=== PATIENT | female | born 1990 | race Hispanic/Latino ===

== ENCOUNTER 2018-01-05 10:53 | Emergency (ER) | payer SELFPAY ==
[2018-01-05 11:24] VITALS: BP 115/75; PULSE 94; RESP 20; TEMP 36.9; O2SAT 98; BMI 42.5
[2018-01-05] MEDS: ONDANSETRON 4 MG/2 ML INJ IV ×2 (11:53→12:49)
[2018-01-05] MEDS: SODIUM CHLORIDE 0.9% 1,000 ML 150 ML IV (11:53)
[2018-01-05 11:57] LABS: Add Manual Diff / Slide Review NO; Basophils Percent Auto 0.2 % (0-2); Eosinophils Percent Auto 0.9 % (2-4); Hematocrit 43.2 % (36-46); Hemoglobin 15.1 g/dL (12.0-16.0); Lymphocytes Percent Auto 7.4 % (25-40); Mean Corpuscular HGB Conc 34.9 % (30-36); Mean Corpuscular Hemoglobin 30.4 PG (26-34); Mean Corpuscular Volume 87.3 fL (80-100); Monocytes Percent Auto 7.1 % (3-14); Neutrophils Absolute Auto 8100 /uL (3000-5900); Neutrophils Percent Auto 84.4 % (50-75); Platelet Count 184 X10^3/uL (150-400); Red Blood Cell Count 4.95 X10^6/uL (4.0-5.2); Red Cell Distribution Width 13.3 % (11.6-14.8); White Blood Cell Count 9.6 X10^3/uL (4.5-11.0)
[2018-01-05 12:03] LABS: INR 1.1 (0.9-1.3); Prothrombin Time 11.6 SECONDS (10.1-12.7)
--- NOTE | 2018-01-05 12:04 | ED.NAVMDI ---
HPI - Nausea/Vomiting/Diarrhea <TRUPTI Burnham - Last Filed: 01/05/18 22:15> General Chief complaint: Nausea/Vomiting/Diarrhea Stated complaint: THROWING UP,'DON'T FEEL GOOD' Time Seen by Provider: 01/05/18 12:04 Source: patient Mode of arrival: ambulatory Limitations: no limitations History of Present Illness HPI Narrative: 27-year-old female here for complaint of having nausea and vomiting that started earlier today. She states she has some abdominal pain as well. Last bowel movement was earlier today and she states was diarrhea. She denies any stressor relievers of the pain. She is concerned she might have UTI and she states that she has had some urine urgency starting yesterday. She denies any flank pains. No fevers no chills. She denies other family members or contacts having similar symptoms. No other concerns or complaints at this time Related Data Home Medications Medication Instructions Recorded Confirmed Probiotic 1 cap PO DAILY 01/05/18 01/05/18 Previous Rx's Medication Instructions Recorded ondansetron 4 mg PO TID PRN #9 tab 01/05/18 Allergies Allergy/AdvReac Type Severity Reaction Status Date / Time No Known Drug Allergies Allergy Verified 01/05/18 11:32 Review of Systems <TRUPTI Burnham - Last Filed: 01/05/18 22:15> Constitutional Denies chills, Denies fever(s), Denies lethargy and Denies weakness Eyes Denies change in vision, Denies eye discharge, Denies irritation and Denies loss of vision ENT Ears, Nose, Mouth, and Throat: Denies change in voice, Denies neck pain and Denies sore throat Cardiovascular Denies chest pain, Denies irregular heart rhythm, Denies lightheadedness, Denies palpitations, Denies dyspnea, Denies dyspnea on exertion and Denies orthopnea Respiratory Denies cough, Denies dyspnea, Denies dyspnea on exertion and Denies wheezing Gastrointestinal Gastrointestinal: Reports abdominal pain, Reports diarrhea and Reports vomiting Genitourinary Reports urinary urgency Musculoskeletal Denies neck pain Integumentary/Breasts Denies pruritus, Denies erythema, Denies rash and Denies wounds Neurologic Denies confusion, Denies loss of vision and Denies weakness Psychiatric Denies anxiety, Denies confusion, Denies depression, Denies homicidal ideation and Denies suicidal ideation Endocrine Denies palpitations Hematologic/Lymphatic Denies easy bruising Allergic/Immunologic Denies wheezing Exam <TRUPTI Burnham - Last Filed: 01/05/18 22:15> Initial Vital Signs Initial Vital Signs: Vital Signs Temperature 98.5 F 01/05/18 11:24 Pulse Rate 94 H 01/05/18 11:24 Respiratory Rate 20 01/05/18 11:24 Blood Pressure 115/75 01/05/18 11:24 Pulse Oximetry 98 01/05/18 11:24 Const General: cooperative and well developed Nutritional Appearance: well nourished Orientation: alert, awake, oriented x3 and not confused HENKS Mouth: oral mucosae normal and moist mucous membranes Eyes Conjunctivae: conjunctivae normal Sclera: sclerae normal Pupils: PERRL EOM: EOM intact bilaterally Resp Effort & Inspection: normal respiratory effort, able to speak in complete sentences, no respiratory distress and no use of accessory muscles Auscultation: clear to auscultation bilaterally, no rales, no rhonchi and no wheezes Cardio Rate: regular rate Rhythm: regular rhythm Heart Sounds: no click, no gallops, no murmurs and no rubs GI Inspection: non-distended Palpation: soft, no hepatosplenomegaly, No guarding, No pulsatile mass and tender (Tenderness on palpation to right lower quadrant and to left upper quadrant) Auscultation: normal bowel sounds General: No CVA tenderness Skin General: no rashes or lesions noted, No jaundice and No petechiae Neuro General: alert, oriented x3, gait normal and no focal motor deficits Speech: speech normal <Landon Centeno DO - Last Filed: 01/22/18 07:56> Initial Vital Signs Initial Vital Signs: Vital Signs Temperature 98.5 F 01/05/18 11:24 Pulse Rate 94 H 01/05/18 11:24 Respiratory Rate 20 01/05/18 11:24 Blood Pressure 115/75 01/05/18 11:24 Pulse Oximetry 98 01/05/18 11:24 Course <TRUPTI Burnham - Last Filed: 01/05/18 22:15> Orders Ordered: Discontinued Medications Sodium Chloride (Normal Saline 0.9%) 1,000 mls @ 150 mls/hr IV CONT RODNEY Last Infusion: 01/05/18 12:50 Dose: 0 mls/hr Admin: 01/05/18 11:53 Dose: 150 mls/hr Ondansetron HCl (Zofran) 4 mg IV Q4HR PRN PRN Reason: Nausea And Vomiting Last Admin: 01/05/18 11:53 Dose: 4 mg Ondansetron HCl (Zofran) 4 mg IV NOW ONE Stop: 01/05/18 12:46 Last Admin: 01/05/18 12:49 Dose: 4 mg Vital Signs - 8 hr 01/05/18 11:24 01/05/18 12:40 Temperature 98.5 F Pulse Rate 94 H 87 Respiratory Rate 20 18 Blood Pressure 115/75 Blood Pressure [Left Arm] 119/68 Pulse Oximetry 98 100 <Landon Centeno DO - Last Filed: 01/22/18 07:56> Orders Ordered: Discontinued Medications Sodium Chloride (Normal Saline 0.9%) 1,000 mls @ 150 mls/hr IV CONT RODNEY Last Infusion: 01/05/18 12:50 Dose: 0 mls/hr Admin: 01/05/18 11:53 Dose: 150 mls/hr Ondansetron HCl (Zofran) 4 mg IV Q4HR PRN PRN Reason: Nausea And Vomiting Last Admin: 01/05/18 11:53 Dose: 4 mg Ondansetron HCl (Zofran) 4 mg IV NOW ONE Stop: 01/05/18 12:46 Last Admin: 01/05/18 12:49 Dose: 4 mg Vital Signs - 8 hr 01/05/18 11:24 01/05/18 12:40 Temperature 98.5 F Pulse Rate 94 H 87 Respiratory Rate 20 18 Blood Pressure 115/75 Blood Pressure [Left Arm] 119/68 Pulse Oximetry 98 100 MDM - Nausea/Vomiting/Diarrhea <TRUPTI Burnham - Last Filed: 01/05/18 22:15> Lab Data Result diagrams: 01/05/18 11:40 01/05/18 11:40 Lab Results 01/05/18 01/05/18 01/05/18 Range/Units 11:40 11:40 11:40 WBC 9.6 (4.5-11.0) X10^3/uL RBC 4.95 (4.0-5.2) X10^6/uL Hgb 15.1 (12.0-16.0) g/dL Hct 43.2 (36-46) % MCV 87.3 (80-100) fL MCH 30.4 (26-34) PG MCHC 34.9 (30-36) % RDW 13.3 (11.6-14.8) % Plt Count 184 (150-400) X10^3/uL Neut % (Auto) 84.4 H (50-75) % Lymph % (Auto) 7.4 L (25-40) % [place] % (Auto) 7.1 (3-14) % Eos % (Auto) 0.9 L (2-4) % Baso % (Auto) 0.2 (0-2) % Neut # (Auto) 8100 H (7113-1709) /uL PT 11.6 (10.1-12.7) SECONDS INR 1.1 (0.9-1.3) APTT 31 (26.4-36.2) SECONDS Sodium 138 (137-145) mmol/L Potassium 3.9 (3.4-5.1) mmol/L Chloride 102 (98-107) mmol/L Carbon Dioxide 26 (22-32) mmol/L BUN 13 (7-17) mg/dL Creatinine 0.60 (0.52-1.04) mg/dL Estimated GFR > 60.0 (>60) mL/min BUN/Creatinine Ratio 21.7 (6-22) Glucose 110 H (70-100) mg/dL Calcium 9.0 (8.4-10.2) mg/dL Total Bilirubin 1.1 (0.2-1.3) mg/dL AST 21 (14-36) IU/L ALT 27 (9-52) IU/L Alkaline Phosphatase 57 (38-126) U/L Total Protein 7.4 (6.3-8.2) g/dL Albumin 4.4 (3.5-5.0) g/dL Globulin 3.0 (1.7-4.1) g/dL Albumin/Globulin Ratio 1.5 (1.0-2.8) Lipase 50 (23-300) U/L Imaging Data CT scan - abdomen: Radiologist's impression: Patient: Mara Charlton MR#: [id number] : 1990 Acct:[id number] Age/Sex: 27 / F Date of Service: 01/05/18 Loc: ED Accession Number: [id number] Procedure: CT abdomen pelvis w con Ordering Provider: Jet Edwards PROCEDURE: CT ABDOMEN PELVIS W CON INDICATIONS: Pain to right lower quadrant and left upper quadrant TECHNIQUE: After the administration of intravenous contrast, 5 mm thick sections acquired from the diaphragm to the symphysis. 5 mm coronal and sagittal reformats were acquired. For radiation dose reduction, the following was used: automated exposure control, adjustment of mA and/or kV according to patient size. COMPARISON: None. FINDINGS: Image quality: Excellent. ABDOMEN: Lung bases: Lung bases are clear. Heart size is normal. Solid organs: Liver is normal in size and enhancement. Gallbladder is within normal limits. Biliary system is non dilated. Pancreas enhances normally. Spleen is normal in size and enhancement. No adrenal nodules. Kidneys demonstrate normal size and enhancement, without hydronephrosis. Small right renal cyst. Peritoneum and bowel: Bowel loops demonstrate normal caliber. Mild circumferential wall thickening involving several tarsal loops of small bowel noted compatible with nonspecific enteritis. No free fluid or air. The appendix is normal. Nodes and vessels: No retroperitoneal or mesenteric adenopathy by size criteria. Aorta and inferior vena cava are normal in size. Miscellaneous: No ventral hernias. PELVIS: Genitourinary: Bladder wall thickness is normal. Miscellaneous: No inguinal hernias or adenopathy. Bones: No suspicious bony lesions. No vertebral body compression fractures. IMPRESSION: 1. Mild circumferential wall thickening involving proximal loops of small bowel most compatible with enteritis. 2. The appendix is normal. 3. No free fluid or air. 4. No dilated loops of bowel. Dictated by: Kellie Haque MD, PhD on 01/05/2018 at 13:17 Approved by: Kellie Haque MD, PhD on 01/05/2018 at 13:23 [facility] Narrative Medical decision making narrative: CBC and Chem panel were obtained were unremarkable. Lipase was normal. Urinalysis was negative for and for urinary tract infection. She was given fluids and Zofran in the emergency room and she felt better. Due to pain into the right lower quadrant a CT was obtained and shows some thickening of the small bowel loops suggestive of enteritis no other acute findings. Will treat as a viral illness. She is prescribed Zofran for nausea and vomiting. Plenty of fluids slowly advance diet as tolerated. Follow up with primary care provider in the next few days for re-evaluation. For any worsening symptoms return to the emergency room. <Landon Centeno DO - Last Filed: 01/22/18 07:56> Lab Data Lab Results 01/05/18 01/05/18 01/05/18 Range/Units 11:40 11:40 11:40 WBC 9.6 (4.5-11.0) X10^3/uL RBC 4.95 (4.0-5.2) X10^6/uL Hgb 15.1 (12.0-16.0) g/dL Hct 43.2 (36-46) % MCV 87.3 (80-100) fL MCH 30.4 (26-34) PG MCHC 34.9 (30-36) % RDW 13.3 (11.6-14.8) % Plt Count 184 (150-400) X10^3/uL Neut % (Auto) 84.4 H (50-75) % Lymph % (Auto) 7.4 L (25-40) % [place] % (Auto) 7.1 (3-14) % Eos % (Auto) 0.9 L (2-4) % Baso % (Auto) 0.2 (0-2) % Neut # (Auto) 8100 H (4348-2257) /uL PT 11.6 (10.1-12.7) SECONDS INR 1.1 (0.9-1.3) APTT 31 (26.4-36.2) SECONDS Sodium 138 (137-145) mmol/L Potassium 3.9 (3.4-5.1) mmol/L Chloride 102 (98-107) mmol/L Carbon Dioxide 26 (22-32) mmol/L BUN 13 (7-17) mg/dL Creatinine 0.60 (0.52-1.04) mg/dL Estimated GFR > 60.0 (>60) mL/min BUN/Creatinine Ratio 21.7 (6-22) Glucose 110 H (70-100) mg/dL Calcium 9.0 (8.4-10.2) mg/dL Total Bilirubin 1.1 (0.2-1.3) mg/dL AST 21 (14-36) IU/L ALT 27 (9-52) IU/L Alkaline Phosphatase 57 (38-126) U/L Total Protein 7.4 (6.3-8.2) g/dL Albumin 4.4 (3.5-5.0) g/dL Globulin 3.0 (1.7-4.1) g/dL Albumin/Globulin Ratio 1.5 (1.0-2.8) Lipase 50 (23-300) U/L Discharge Plan Departure Patient Disposition: Home, Self-Care Clinical Impression: Nausea & vomiting Discharge Date/Time: 01/05/18 13:49 Interventions: ED Discharge Assessment Last Done: 01/05/18 13:45 Instructions: DI for Viral Gastroenteritis -- Adult Activity Restrictions/Additional Instructions: Laboratory results were unremarkable today CT was unremarkable except for signs of enteritis. Signs and symptoms presents as a viral illness. Ondansetron is prescribed to help with nausea vomiting use as directed. Plenty of fluids. Slowly advance diet as tolerated. Follow up with primary care provider in the next few days for re-evaluation. For any worsening symptoms return to the emergency room. Prescriptions: New ondansetron 4 mg tablet,disintegrating 4 mg PO TID PRN (Reason: nausea and vomiting) Qty: 9 RF: 0 No Action Probiotic 1 cap PO DAILY RF: 0 Referrals: [facility] [Provider Group] <Landon Centeno DO - Last Filed: 01/22/18 07:56> Cosign ED Attending Beata Attestation: I was immediately available in the department for consultation. Documentation has been reviewed. I agree with assessment and plan.
[2018-01-05 12:06] LABS: PTT Partial Thromboplastin Tim 31 SECONDS (26.4-36.2)
[2018-01-05 12:08] LABS: Alanine Aminotransferase 27 IU/L (9-52); Albumin 4.4 g/dL (3.5-5.0); Albumin Globulin Ratio 1.5 (1.0-2.8); Alkaline Phosphatase 57 U/L (38-126); Aspartate Aminotransferase 21 IU/L (14-36); BUN Creatinine Ratio 21.7 (6-22); Bilirubin Total 1.1 mg/dL (0.2-1.3); Blood Urea Nitrogen 13 mg/dL (7-17); Carbon Dioxide 26 mmol/L (22-32); Chloride 102 mmol/L (98-107); Estimated Glomerular Filt Rate > 60.0 mL/min (>60); Glucose 110 mg/dL (70-100); HEMOLYSIS < 15 (0-50); Lipase 50 U/L (23-300); Potassium 3.9 mmol/L (3.4-5.1); Sodium 138 mmol/L (137-145); Total Protein 7.4 g/dL (6.3-8.2)
--- NOTE | 2018-01-05 12:17 | DI.CT.S_ITS ---
PROCEDURE: CT ABDOMEN PELVIS W CON INDICATIONS: Pain to right lower quadrant and left upper quadrant TECHNIQUE: After the administration of intravenous contrast, 5 mm thick sections acquired from the diaphragm to the symphysis. 5 mm coronal and sagittal reformats were acquired. For radiation dose reduction, the following was used: automated exposure control, adjustment of mA and/or kV according to patient size. COMPARISON: None. FINDINGS: Image quality: Excellent. ABDOMEN: Lung bases: Lung bases are clear. Heart size is normal. Solid organs: Liver is normal in size and enhancement. Gallbladder is within normal limits. Biliary system is non dilated. Pancreas enhances normally. Spleen is normal in size and enhancement. No adrenal nodules. Kidneys demonstrate normal size and enhancement, without hydronephrosis. Small right renal cyst. Peritoneum and bowel: Bowel loops demonstrate normal caliber. Mild circumferential wall thickening involving several tarsal loops of small bowel noted compatible with nonspecific enteritis. No free fluid or air. The appendix is normal. Nodes and vessels: No retroperitoneal or mesenteric adenopathy by size criteria. Aorta and inferior vena cava are normal in size. Miscellaneous: No ventral hernias. PELVIS: Genitourinary: Bladder wall thickness is normal. Miscellaneous: No inguinal hernias or adenopathy. Bones: No suspicious bony lesions. No vertebral body compression fractures. IMPRESSION: 1. Mild circumferential wall thickening involving proximal loops of small bowel most compatible with enteritis. 2. The appendix is normal. 3. No free fluid or air. 4. No dilated loops of bowel. Dictated by: Kellie Haque MD, PhD on 01/05/2018 at 13:17 Approved by: Kellie Haque MD, PhD on 01/05/2018 at 13:23
[2018-01-05 12:40] VITALS: BP 119/68; PULSE 87; RESP 18; O2SAT 100
[2018-01-05 13:45] VITALS: BP 121/81; PULSE 102; RESP 20; TEMP 37.2; O2SAT 99
== END 2018-01-05 13:49 | disposition home or self-care (01) ==
PROVIDERS: Emergency Provider Nurse Practitioner Family
DX: R11.2 Nausea with vomiting, unspecified (principal)
CPT/HCPCS: 36591; 74177; 80053; 81003; 81025; 83690; 85025; 85610; 85730; 96361; 96374; 99283; 99285; J2405; Q9967

== ENCOUNTER 2019-08-20 19:38 | Emergency (ER) | payer SELFPAY ==
[2019-08-20 19:43] VITALS: BP 112/78; PULSE 83; RESP 16; TEMP 36; O2SAT 99; BMI 38.4
--- NOTE | 2019-08-20 19:53 | ED.URI ---
HPI - URI/Sore Throat General Chief Complaint: Upper Respiratory Symptoms Stated Complaint: cough,body aches Time Seen by Provider: 08/20/19 19:42 Mode of arrival: Ambulatory Limitations: no limitations History of Present Illness HPI Narrative: 29-year-old female former smoker with noncontributory medical history presents with her significant other and a chief complaint of minor headache, runny nose, sore throat, dry hacking cough and subjective fever since yesterday. She denies any nausea, vomiting or diarrhea. She has no urinary symptoms such as dysuria, frequency, urgency or back pain. She has had no vaginal bleeding or discharge. She does live in [place] but denies any recent travel or exposure to persons known to be of interest for COVID-19. MD Complaint: fever, cough, sore throat, rhinorrhea and nasal congestion Onset (ago): day(s) Duration: constant Severity: moderate Relieving factors: nothing Exacerbating factors: nothing Description of mucous: clear Able to tolerate fluids by mouth: Yes Associated symptoms: fever, chills, headache, rhinorrhea, sore throat and cough Related Data Home Medications Medication Instructions Recorded Confirmed Probiotic 1 cap PO DAILY 01/05/18 01/05/18 Previous Rx's Medication Instructions Recorded ondansetron 4 mg PO TID PRN #9 tab 01/05/18 Allergies Allergy/AdvReac Type Severity Reaction Status Date / Time No Known Drug Allergies Allergy Verified 08/20/19 19:46 Review of Systems Constitutional Constitutional: Denies chills, Denies fatigue, Reports fever(s), Denies frequent falls, Reports headache(s), Denies lethargy and Denies weakness Eyes Eyes: Denies change in vision, Denies eye discharge, Denies irritation and Denies loss of vision ENT Ears, Nose, Mouth, and Throat: Denies change in voice, Denies dizziness, Reports headache(s), Reports nasal congestion, Denies neck pain, Reports sore throat and Denies throat swelling Cardiovascular Cardiovascular: Denies chest pain, Denies irregular heart rhythm, Denies lightheadedness, Denies palpitations, Denies dyspnea, Denies dyspnea on exertion and Denies orthopnea Respiratory Respiratory: Reports cough, Denies dyspnea, Denies dyspnea on exertion and Denies wheezing Gastrointestinal Gastrointestinal: Denies abdominal pain, Denies change in bowel habits, Denies diarrhea, Denies nausea and Denies vomiting Genitourinary Genitourinary: Denies hematuria, Denies flank pain, Denies urinary incontinence and Denies urinary urgency Musculoskeletal Musculoskeletal: Denies back pain, Denies muscle weakness, Denies neck pain, Denies numbness and Denies tingling Integumentary/Breasts Skin/Breast: Denies pruritus, Denies erythema, Denies rash and Denies wounds Neurologic Neurologic: Denies behavioral changes, Denies confusion, Denies dizziness, Denies frequent falls, Reports headache(s), Denies loss of vision, Denies numbness, Denies tingling and Denies weakness Psychiatric Psychiatric: Denies anxiety, Denies behavioral changes, Denies confusion, Denies depression, Denies homicidal ideation and Denies suicidal ideation Endocrine Endocrine: Denies fatigue, Denies flushing and Denies palpitations Hematologic/Lymphatic Hematologic/Lymphatic: Denies easy bruising Allergic/Immunologic Allergic/Immunologic: Denies urticaria, Denies throat swelling and Denies wheezing Patient History Social History Smoking Status: Former smoker Smoking Status: Former smoker alcohol intake frequency: 0-2 drinks per day Substance Use Type: marijuana Exam Narrative Exam Narrative: GENERAL: [29] year old patient appears stated age. Well-nourished, well-developed patient, in mild distress. HEAD: Atraumatic. Normocephalic. EYES: Pupils equal round and reactive. Extraocular motions intact. No scleral icterus. No injection or drainage. ENT: Clear bilateral nare drainage. Throat without erythema, tonsillar hypertrophy or exudate though there is clear postnasal drip. Airway patent. NECK: Trachea midline. Non tender CARDIOVASCULAR: Regular rate and rhythm without murmurs, gallops, or rubs. RESPIRATORY: Clear to auscultation. Breath sounds equal bilaterally. No wheezes, rales, or rhonchi. GASTROINTESTINAL: Abdomen soft, non-tender, nondistended. EXTREMITIES: No edema or joint tenderness. BACK: Nontender without deformity or crepitance. No flank tenderness. NEURO: AOx3. SKIN: No rash or erythema of visible areas Initial Vital Signs Initial Vital Signs: Vital Signs Temperature 96.8 F L 08/20/19 19:43 Pulse Rate 83 08/20/19 19:43 Respiratory Rate 16 08/20/19 19:43 Blood Pressure 112/78 08/20/19 19:43 Pulse Oximetry 99 08/20/19 19:43 Course Orders Ordered: ED Orders 08/20/19 19:53 XR chest 2V Stat 08/20/19 20:28 Influenza A & B (PCR) Stat Discontinued Medications Ketorolac Tromethamine (Toradol) 60 mg IM NOW ONE Stop: 08/20/19 19:54 Last Admin: 08/20/19 20:14 Dose: 60 mg Documented by: TOMMIE Vital Signs Vital signs: Vital Signs - 8 hr 08/20/19 19:43 Temperature 96.8 F L Pulse Rate 83 Respiratory Rate 16 Blood Pressure 112/78 Pulse Oximetry 99 MDM - URI/Sore Throat Lab Data Labs: Lab Results 08/20/19 Range/Units 20:28 Influenza A (RT-PCR) Flu a negative (NEGATIVE) Influenza B (RT-PCR) Flu b negative (NEGATIVE) Imaging Data Chest x-ray: Radiologist's Impression: [address] [address] XRay Report Signed Patient: Mara Charlton DMR#: [id number] : 1990Acct:[id number] Age/Sex: 29 / FDate of Service: 08/20/19 Loc: ED Accession Number: [id number] Procedure: XR chest 2V Ordering Provider: Landon Centeno D.O. PROCEDURE: XR CHEST 2V INDICATIONS: COUGH, FEVER, CHILLS TECHNIQUE: 2 views of the chest were acquired. COMPARISON: None. FINDINGS: Surgical changes and devices: None. Lungs and pleura: Lungs are clear. No pleural effusions or pneumothorax. Mediastinum: Mediastinal contours are normal. Heart size is normal. Bones and chest wall: No suspicious bony abnormalities. Soft tissues appear unremarkable. IMPRESSION: No acute process. Dictated by: Zachary Zapien M.D. on 08/20/2019 at 20:06 Approved by: Zachary Zapien M.D. on 08/20/2019 at 20:06 Discharge Plan Departure Patient Disposition: Home Clinical Impression: Upper respiratory virus Discharge Date/Time: 08/20/19 21:23 Instructions: DI for Viral Upper Respiratory Infection -- Adult Activity Restrictions/Additional Instructions: *You have been diagnosed with [acute viral upper respiratory infection. Your flu test was negative and her chest x-ray was clear, as interpreted by myself and radiology] *What to do: *Take medications as directed including [id number] cough and cold medications *Follow up with your primary care provider in 2-3 days, call for an appointment. Let them know you were seen in the Emergency Department and that we ask that you be seen in follow up *Return to ER if you should have any new, worsening or concerning symptoms Prescriptions: No Action Probiotic 1 cap PO DAILY RF: 0 ondansetron 4 mg tablet,disintegrating 4 mg PO TID PRN (Reason: nausea and vomiting) Qty: 9 RF: 0
[2019-08-20] MEDS: KETOROLAC 60 MG/2 ML VIAL IM (20:14)
[2019-08-20 21:03] LABS: Influenza A - CEPHEID Flu A NEGATIVE (NEGATIVE); Influenza B - CEPHEID Flu B NEGATIVE (NEGATIVE)
== END 2019-08-20 21:23 | disposition home or self-care (01) ==
PROVIDERS: Emergency Provider Emergency Medicine
DX: J06.9 Acute upper respiratory infection, unspecified (principal)
CPT/HCPCS: 71046; 87502; 96372; 99283; J1885

== ENCOUNTER 2020-11-26 15:52 | Emergency (ER) | payer SELFPAY ==
[2020-11-26] VITALS (9 sets, daily range): BP systolic 100–136; BP diastolic 65–89; PULSE 70–95; RESP 18–25; TEMP 36.6–36.8; O2SAT 96–100; BMI 49.4
[2020-11-26 17:40] LABS: Alanine Aminotransferase 20 IU/L (<35); Albumin 4.1 g/dL (3.5-5.0); Albumin Globulin Ratio 1.2 (1.0-2.8); Alkaline Phosphatase 90 U/L (38-126); Aspartate Aminotransferase 25 IU/L (14-36); BUN Creatinine Ratio 17.7 (6-22); Bilirubin Total 0.4 mg/dL (0.2-1.3); Blood Urea Nitrogen 11 mg/dL (7-17); Calcium 9.4 mg/dL (8.4-10.2); Carbon Dioxide 26 mmol/L (22-32); Chloride 106 mmol/L (98-107); Estimated Glomerular Filt Rate > 60.0 mL/min (>60); Globulin 3.3 g/dL (1.7-4.1); Glucose 102 mg/dL (70-100); HEMOLYSIS < 15 (0-50); Lipase 73 U/L (23-300); Potassium 3.8 mmol/L (3.4-5.1); Sodium 140 mmol/L (137-145); Total Protein 7.4 g/dL (6.3-8.2)
[2020-11-26 18:01] LABS: Add Manual Diff / Slide Review NO; Basophils Absolute Auto 100 /uL (0-100); Basophils Percent Auto 0.7 % (0-2); Eosinophils Absolute Auto 100 /uL (0-450); Eosinophils Percent Auto 0.8 % (2-4); Hematocrit 34.7 % (36-46); Hemoglobin 11.3 g/dL (12.0-16.0); Lymphocytes Absolute Auto 3300 /uL (1100-4500); Lymphocytes Percent Auto 37.4 % (25-40); Mean Corpuscular HGB Conc 32.6 % (30-36); Mean Corpuscular Hemoglobin 24.1 PG (26-34); Mean Corpuscular Volume 73.8 fL (80-100); Monocytes Absolute Auto 700 /uL (0-900); Monocytes Percent Auto 8.2 % (3-14); Neutrophils Absolute Auto 4600 /uL (1500-7000); Neutrophils Percent Auto 52.9 % (50-75); Platelet Count 266 X10^3/uL (150-400); Red Cell Distribution Width 17.1 % (11.6-14.8); White Blood Cell Count 8.8 X10^3/uL (4.5-11.0)
--- NOTE | 2020-11-26 18:50 | ED.ABDPAIN ---
HPI - Abdominal Pain General Chief Complaint: Abdominal Pain Stated Complaint: Severe stomach pain Time Seen by Provider: 11/26/20 18:50 Source: patient Mode of arrival: Ambulatory Limitations: no limitations Related Data Home Medications Medication Instructions Recorded Confirmed Probiotic 1 cap PO DAILY 01/05/18 01/05/18 Previous Rx's Medication Instructions Recorded ondansetron 4 mg PO TID PRN #9 tab 01/05/18 Allergies Allergy/AdvReac Type Severity Reaction Status Date / Time No Known Drug Allergies Allergy Verified 08/20/19 19:46 Patient History Social History Smoking Status: Former smoker Smoking Status: Former smoker alcohol intake frequency: 0-2 drinks per day Substance Use Type: does not use Exam Initial Vital Signs Initial Vital Signs: Vital Signs Temperature 98.2 F 11/26/20 15:56 Pulse Rate 95 H 11/26/20 15:56 Respiratory Rate 18 11/26/20 15:56 Blood Pressure 136/89 11/26/20 15:56 Pulse Oximetry 97 11/26/20 15:56 Course Orders Ordered: ED Orders 11/26/20 16:01 EKG-12 Lead Stat 11/26/20 17:08 Complete Blood Count AUTO DIFF Stat Comprehensive Metabolic Panel Stat Lipase Stat Vital Signs Vital signs: Vital Signs - 8 hr 11/26/20 15:56 Temperature 98.2 F Pulse Rate 95 H Respiratory Rate 18 Blood Pressure 136/89 Pulse Oximetry 97 MDM - Abdominal Pain Lab Data Result diagrams: 11/26/20 17:08 11/26/20 17:08 Labs: Lab Results 11/26/20 11/26/20 Range/Units 17:08 17:08 WBC 8.8 (4.5-11.0) X10^3/uL RBC 4.70 (4.0-5.2) X10^6/uL Hgb 11.3 L (12.0-16.0) g/dL Hct 34.7 L (36-46) % MCV 73.8 L (80-100) fL MCH 24.1 L (26-34) PG MCHC 32.6 (30-36) % RDW 17.1 H (11.6-14.8) % Plt Count 266 (150-400) X10^3/uL Neut % (Auto) 52.9 (50-75) % Lymph % (Auto) 37.4 (25-40) % [place] % (Auto) 8.2 (3-14) % Eos % (Auto) 0.8 L (2-4) % Baso % (Auto) 0.7 (0-2) % Neut # (Auto) 4600 (8603-5313) /uL Lymph # (Auto) 3300 (9824-0127) /uL [place] # (Auto) 700 (0-900) /uL Eos # (Auto) 100 (0-450) /uL Baso # (Auto) 100 (0-100) /uL Sodium 140 (137-145) mmol/L Potassium 3.8 (3.4-5.1) mmol/L Chloride 106 (98-107) mmol/L Carbon Dioxide 26 (22-32) mmol/L BUN 11 (7-17) mg/dL Creatinine 0.62 (0.52-1.04) mg/dL Estimated GFR > 60.0 (>60) mL/min BUN/Creatinine Ratio 17.7 (6-22) Glucose 102 H (70-100) mg/dL Calcium 9.4 (8.4-10.2) mg/dL Total Bilirubin 0.4 (0.2-1.3) mg/dL AST 25 (14-36) IU/L ALT 20 (<35) IU/L Alkaline Phosphatase 90 (38-126) U/L Total Protein 7.4 (6.3-8.2) g/dL Albumin 4.1 (3.5-5.0) g/dL Globulin 3.3 (1.7-4.1) g/dL Albumin/Globulin Ratio 1.2 (1.0-2.8) Lipase 73 (23-300) U/L Point of care testing: Point of Care Testing Test Results Negative Urine Dip Bedside Urine Glucose Negative Bedside Urine Bilirubin - Negative Bedside Urine Ketone - Negative Urine Specific [place] 1.025 Bedside Urine Occult Blood - Negative Bedside Urine pH 6.0 Bedside Urine Protein - Negative Bedside Urine Urobilinogen - Negative Bedside Urine Nitrite - Negative Bedside Urine Leukocytes - Negative Esterase Discharge Plan Departure Prescriptions: No Action Probiotic 1 cap PO DAILY RF: 0 ondansetron 4 mg tablet,disintegrating 4 mg PO TID PRN (Reason: nausea and vomiting) Qty: 9 RF: 0
--- NOTE | 2020-11-26 18:53 | ED.ABDPAIN ---
HPI - Abdominal Pain General Chief Complaint: Abdominal Pain Stated Complaint: Severe stomach pain Time Seen by Provider: 11/26/20 18:50 Source: patient Mode of arrival: Ambulatory Limitations: no limitations History of Present Illness HPI narrative: The patient presents with lower abdominal pain, onset of symptoms yesterday. She describes bandlike discomfort to her lower abdomen. She has no associated nausea vomiting. She has pain in the left mid back. She has pain with ambulation. She continues to eat and drink. She has no fever. She denies dysuria. Menstrual cycles are irregular. A recent home test is negative. Apparently her mother has a history of polycystic ovarian disease. The patient has a history of irregular menses, but no diagnosis of ovarian disease. She has no history of prior abdomen or pelvis surgeries. She is on no regular prescribed medications. Related Data Home Medications Medication Instructions Recorded Confirmed Probiotic 1 cap PO DAILY 01/05/18 01/05/18 Previous Rx's Medication Instructions Recorded ondansetron 4 mg PO TID PRN #9 tab 01/05/18 Allergies Allergy/AdvReac Type Severity Reaction Status Date / Time No Known Drug Allergies Allergy Verified 08/20/19 19:46 Review of Systems Constitutional Constitutional: Denies fever(s) and Denies headache(s) ENT Ears, Nose, Mouth, and Throat: Denies vertigo, Denies dizziness, Denies headache(s), Denies sinus pressure and Denies sore throat Cardiovascular Cardiovascular: Denies chest pain, Denies rapid heart rate and Denies dyspnea Respiratory Respiratory: Denies chest congestion, Denies cough and Denies dyspnea Gastrointestinal Gastrointestinal: Reports as per HPI Genitourinary Comments: No dysuria. Irregular menstrual cycles. Musculoskeletal Musculoskeletal: Reports as per HPI Integumentary/Breasts Skin/Breast: Reports alopecia, Denies pruritus and Denies rash Neurologic Neurologic: Denies confusion, Denies vertigo, Denies dizziness and Denies headache(s) Psychiatric Psychiatric: Denies confusion Comments: Feels stressed. Patient History Medical History (Updated 11/26/20 @ 22:02 by Db Leonard MD) Irregular menses Mixed anxiety depressive disorder (02/19/16) Surgical History (Updated 11/26/20 @ 21:54 by Db Leonard MD) No significant past surgical history Social History Smoking Status: Former smoker Smoking Status: Former smoker alcohol intake frequency: 0-2 drinks per day Substance Use Type: does not use Exam Initial Vital Signs Initial Vital Signs: Vital Signs Temperature 98.2 F 11/26/20 15:56 Pulse Rate 95 H 11/26/20 15:56 Respiratory Rate 18 11/26/20 15:56 Blood Pressure 136/89 11/26/20 15:56 Pulse Oximetry 97 11/26/20 15:56 Const General: cooperative and well developed Nutritional Appearance: well nourished [facility] [place] Head: normal to inspection, normocephalic and atraumatic Mouth: oral mucosae normal Eyes Conjunctivae: conjunctivae normal Sclera: sclerae normal Cornea: corneas normal Pupils: PERRL EOM: EOM intact bilaterally Neck Neck: supple and No lymphadenopathy Resp Effort & Inspection: normal respiratory effort and able to speak in complete sentences Auscultation: clear to auscultation bilaterally Cardio Rate: regular rate Rhythm: regular rhythm Heart Sounds: S1 normal, S2 normal, no click, no gallops, no murmurs and no rubs Pulses: normal peripheral pulses GI Other: obese. No palpable hepatosplenomegaly. Tenderness in the RLQ and LLQ without distention, guarding or rebound. Normal bowel sounds. Back/Spine/Pelvis Back: No CVA tenderness Skin Lesions: no lesions Rashes: no rashes Neuro General: patient alert, patient oriented x3, gait normal and no focal motor deficits Speech: speech normal Extrem Other: No lower extremity edema or calf tenderness. Psych Appearance: grossly normal and well kempt Mental Status: mental status grossly normal Course Course Course Narrative: Labs are reassuring. Pelvic ultrasound shows no ovarian disease. Abdomen/ pelvis CT is normal, no evidence of appendicitis. She has had minimal relief with Toradol. She has when he was stress is part of her issue. It may be. Orders Ordered: ED Orders 11/26/20 16:01 EKG-12 Lead Stat 11/26/20 17:08 Complete Blood Count AUTO DIFF Stat Comprehensive Metabolic Panel Stat Lipase Stat 11/26/20 19:11 US pelvic complete Stat 11/26/20 20:44 CT abdomen pelvis w con Stat Sodium Chloride (Normal Saline 0.9%) 1,000 mls @ 150 mls/hr IV CONT RODNEY Last Admin: 11/26/20 20:55 Dose: 150 mls/hr Documented by: LEONA Discontinued Medications Ketorolac Tromethamine (Ketorolac 30 Mg/Ml Vial) 15 mg IV NOW ONE Stop: 11/26/20 19:12 Last Admin: 11/26/20 19:16 Dose: 15 mg Documented by: WEN Vital Signs Vital signs: Vital Signs - 8 hr 11/26/20 15:56 11/26/20 18:31 11/26/20 19:00 Temperature 98.2 F Pulse Rate 95 H 88 87 Respiratory Rate 18 20 24 Blood Pressure 136/89 121/73 130/81 Pulse Oximetry 97 99 99 11/26/20 19:30 Temperature Pulse Rate 84 Respiratory Rate 25 H Blood Pressure 118/74 Pulse Oximetry 99 MDM - Abdominal Pain Lab Data Result diagrams: 11/26/20 17:08 11/26/20 17:08 Labs: Lab Results 11/26/20 11/26/20 Range/Units 17:08 17:08 WBC 8.8 (4.5-11.0) X10^3/uL RBC 4.70 (4.0-5.2) X10^6/uL Hgb 11.3 L (12.0-16.0) g/dL Hct 34.7 L (36-46) % MCV 73.8 L (80-100) fL MCH 24.1 L (26-34) PG MCHC 32.6 (30-36) % RDW 17.1 H (11.6-14.8) % Plt Count 266 (150-400) X10^3/uL Neut % (Auto) 52.9 (50-75) % Lymph % (Auto) 37.4 (25-40) % Williams % (Auto) 8.2 (3-14) % Eos % (Auto) 0.8 L (2-4) % Baso % (Auto) 0.7 (0-2) % Neut # (Auto) 4600 (3578-3330) /uL Lymph # (Auto) 3300 (1333-9867) /uL Williams # (Auto) 700 (0-900) /uL Eos # (Auto) 100 (0-450) /uL Baso # (Auto) 100 (0-100) /uL Sodium 140 (137-145) mmol/L Potassium 3.8 (3.4-5.1) mmol/L Chloride 106 (98-107) mmol/L Carbon Dioxide 26 (22-32) mmol/L BUN 11 (7-17) mg/dL Creatinine 0.62 (0.52-1.04) mg/dL Estimated GFR > 60.0 (>60) mL/min BUN/Creatinine Ratio 17.7 (6-22) Glucose 102 H (70-100) mg/dL Calcium 9.4 (8.4-10.2) mg/dL Total Bilirubin 0.4 (0.2-1.3) mg/dL AST 25 (14-36) IU/L ALT 20 (<35) IU/L Alkaline Phosphatase 90 (38-126) U/L Total Protein 7.4 (6.3-8.2) g/dL Albumin 4.1 (3.5-5.0) g/dL Globulin 3.3 (1.7-4.1) g/dL Albumin/Globulin Ratio 1.2 (1.0-2.8) Lipase 73 (23-300) U/L Point of care testing: Point of Care Testing Test Results Negative Urine Dip Bedside Urine Glucose Negative Bedside Urine Bilirubin - Negative Bedside Urine Ketone - Negative Urine Specific [place] 1.025 Bedside Urine Occult Blood - Negative Bedside Urine pH 6.0 Bedside Urine Protein - Negative Bedside Urine Urobilinogen - Negative Bedside Urine Nitrite - Negative Bedside Urine Leukocytes - Negative Esterase Imaging Data Pelvis ultrasound:: Radiologist's Impression: 25 Db Leonard MD Find Patient Imaging - Mara Charlton 30 F 1990 ACTIVITY DATE EXAM STATUS AUTHOR 11/26/20 19:[address] [id number] ReportSigned Patient: Mara Charlton DMR#: [id number]: 1990Acct:[id number]/Sex: 30 / FDate of Service: 11/26/20Loc: EDAccession Number: [id number] Procedure: US pelvic complete Ordering Provider: Db Leonard MD PROCEDURE: US PELVIC COMPLETE INDICATIONS: PAIN TECHNIQUE: Real-time scanning was performed of the pelvic organs, with image documentation. Additional endovaginal scanning was necessary due to incomplete visualization of the adnexal and endometrial structures by transabdominal scanning. COMPARISON: None. FINDINGS: Uterus: Uterus is normal in size at 4.2 x 6.0 x 8.1 cm. The endometrium measures 13 mm in combined thickness. Ovaries: The right ovary measures 2.2 x 2.3 x 3.0 centimeters. The left ovary measures 1.3 x 1.6 x 2.1 centimeters. No ovarian or adnexal mass. Other: No pathologic free abdominal or pelvic fluid. Appendix not visualized. IMPRESSION: Normal study. Appendix not visualized; appendicitis cannot be excluded. Dictated by: Gael Mckoy M.D. on 11/26/2020 at 20:07 Approved by: Gael Mckoy M.D. on 11/26/2020 at 20:08 CT scan - abdomen/pelvis: Radiologist's Impression: No evidence of appendicitis. No acute findings. Discharge Plan Departure Patient Disposition: Home Clinical Impression: Abdominal pain, right lower quadrant Instructions: DI for Abdominal Pain-Adult Activity Restrictions/Additional Instructions: Tylenol 2 tabs every 4 hours as needed for pain. Be sure you are drinking plenty of water. [place] diet as we discussed. Follow-up with your doctor later this week if symptoms persist. Return the ER if symptoms are obviously worse. Prescriptions: No Action Probiotic 1 cap PO DAILY RF: 0 ondansetron 4 mg tablet,disintegrating 4 mg PO TID PRN (Reason: nausea and vomiting) Qty: 9 RF: 0 Stand Alone Forms: Work Release Note
--- NOTE | 2020-11-26 19:11 | DI.US.S_ITS ---
PROCEDURE: US PELVIC COMPLETE INDICATIONS: PAIN TECHNIQUE: Real-time scanning was performed of the pelvic organs, with image documentation. Additional endovaginal scanning was necessary due to incomplete visualization of the adnexal and endometrial structures by transabdominal scanning. COMPARISON: None. FINDINGS: Uterus: Uterus is normal in size at 4.2 x 6.0 x 8.1 cm. The endometrium measures 13 mm in combined thickness. Ovaries: The right ovary measures 2.2 x 2.3 x 3.0 centimeters. The left ovary measures 1.3 x 1.6 x 2.1 centimeters. No ovarian or adnexal mass. Other: No pathologic free abdominal or pelvic fluid. Appendix not visualized. IMPRESSION: Normal study. Appendix not visualized; appendicitis cannot be excluded. Dictated by: Gael Mckoy M.D. on 11/26/2020 at 20:07 Approved by: Gael Mckoy M.D. on 11/26/2020 at 20:08
[2020-11-26] MEDS: KETOROLAC 30 MG/ML VIAL 15 MG IV (19:16)
--- NOTE | 2020-11-26 20:44 | DI.CT.S_ITS ---
PROCEDURE: CT ABDOMEN PELVIS W CON INDICATIONS: RLQ tenderness TECHNIQUE: After the administration of intravenous contrast, axial sections acquired from the lung bases to the pubic symphysis. Coronal and sagittal reformats were performed. For radiation dose reduction, the following was used: automated exposure control, adjustment of mA and/or kV according to patient size. COMPARISON: [facility], , PELVIC COMPLETE, 11/26/2020, 19:41. FINDINGS: Image quality: Excellent. Lung bases: Unremarkable. Heart: No significant findings. ABDOMEN: Liver: Unremarkable. Gallbladder: Normal. Biliary ducts: Unremarkable. Pancreas: No peripancreatic inflammatory changes or pancreatic ductal dilatation. Spleen: Unremarkable. Adrenal Glands: Unremarkable. Kidneys and Ureters: Unremarkable. Stomach and Bowel: Stomach, small bowel loops, and colon are unremarkable. Normal nondilated appendix containing air with no adjacent inflammatory change. No free fluid in the right lower quadrant or right lower quadrant lymphadenopathy. Peritoneum: No abnormal intraperitoneal fluid. No free air. Ventral Wall: No hernias. Abdominal Nodes: No retroperitoneal or mesenteric adenopathy by size criteria. Vessels: Aorta and inferior vena cava are normal in size. PELVIS: Pelvic Organs: Unremarkable. Bladder: Unremarkable. Pelvic Nodes: No enlarged lymph nodes. Miscellaneous: No hernias are seen. Bones: Unremarkable. IMPRESSION: No findings of appendicitis or other acute process. Dictated by: Gael Mckoy M.D. on 11/26/2020 at 21:12 Approved by: Gael Mckoy M.D. on 11/26/2020 at 21:15
[2020-11-26] MEDS: SODIUM CHLORIDE 0.9% 1,000 ML 150 ML IV (20:55)
== END 2020-11-26 22:24 | disposition home or self-care (01) ==
PROVIDERS: Emergency Medicine; Emergency Provider Emergency Medicine
DX: R10.31 Right lower quadrant pain (principal); M54.6 Pain in thoracic spine
CPT/HCPCS: 36415; 74177; 76830; 76856; 80053; 81003; 81025; 83690; 85025; 93005; 93010; 96361; 96374; 99284; J1885; Q9967

== ENCOUNTER 2021-02-19 11:17 | Emergency (ER) | payer BC, SELFPAY ==
[2021-02-19 11:24] VITALS: PULSE 104; O2SAT 99
[2021-02-19 11:25] VITALS: BP 124/82; PULSE 108; RESP 16; TEMP 36.8; O2SAT 97; BMI 50.3
[2021-02-19 11:30] VITALS: PULSE 108; O2SAT 99
[2021-02-19 12:00] VITALS: PULSE 98; O2SAT 98
--- NOTE | 2021-02-19 12:10 | ED_ITS ---
HPI - General Chief complaint: OB/Uterine Contractions Stated complaint: and bleeding/cramping 14.6weeks along Time Seen by Provider: 02/19/21 12:10 History of Present Illness HPI Narrative: 31-year-old at 15 weeks gestational age with a history of gestational diabetes and depression. Her 1st baby is only 7-month-old and was delivered via . She currently sees Dr. Gonzalez at [facility] for her primary care OB. She has had cramping throughout her entire and had attributed that to becoming so soon after her 1st delivery. Yesterday she noticed some minor brownish discharge and today after voiding noted some pink tinged discharge with wiping. She has not had any gush of fluid and not actively bleeding. She has not had any sexual intercourse for at least 2 weeks. She states that the cramping is at its baseline. She co ntacted her OB GYNs office in a asked her to come to the ER for further evaluation. Related Data Home Medications Medication Instructions Recorded Confirmed Probiotic 1 cap PO DAILY 01/05/18 01/05/18 Previous Rx's Medication Instructions Recorded ondansetron 4 mg disintegrating 4 mg PO TID PRN #9 tab 01/05/18 tablet Allergies Allergy/AdvReac Type Severity Reaction Status Date / Time No Known Drug Allergies Allergy Verified 08/20/19 19:46 Review of Systems Review of Systems Narrative: Pertinent positive and negative findings as per HPI Remainder of review of systems is otherwise unremarkable for Constitutional: Fevers, chills, weakness ENT: No sore throat, neck pain, ear pain CV: Chest pain, palpitations, Respiratory: Cough, wheeze, dyspnea GI: Nausea, vomiting, diarrhea, : Dysuria, hematuria, vaginal discharge or itching Exam Narrative Exam Narrative: General: Alert appropriate in no acute distress Respiratory: Able to speak in full sentences, no obvious respiratory distress Skin: No obvious rashes, warm and dry Neurologic: Grossly intact no obvious asymmetries or abnormalities Psych: appropriate insight and affect, cooperative Abdomen: Gravid, nontender no suprapubic tenderness External genitalia: No vaginal discharge no bleeding from the vaginal introitus Bedside ultrasound 15 week intrauterine fetus with heart rate at 140 and active movement appreciated Anterior low-lying placenta with no subchorionic hemorrhage Initial Vital Signs Initial Vital Signs: Vital Signs Pulse Rate 104 H 02/19/21 11:24 Pulse Oximetry 99 02/19/21 11:24 Course Orders Ordered: ED Orders 02/19/21 12:18 Complete Blood Count AUTO DIFF Stat Comprehensive Metabolic Panel Stat HCG Quantitative /Beta subunit Stat 02/19/21 12:19 Type and Screen Stat 02/19/21 12:31 Urinalysis and Microscopic Stat Vital Signs Vital signs: Vital Signs - 8 hr 02/19/21 11:24 02/19/21 11:25 02/19/21 11:30 Temperature 98.3 F Pulse Rate 104 H 108 H 108 H Respiratory Rate 16 Blood Pressure 124/82 Pulse Oximetry 99 97 99 02/19/21 12:00 02/19/21 13:09 Temperature Pulse Rate 98 H 68 Respiratory Rate 16 Blood Pressure 118/62 Pulse Oximetry 98 99 MDM - OB/Uterine Contractions Lab Data Labs: Lab Results 02/19/21 Range/Units 12:31 Urine Color Yellow Urine Appearance Clear Urine pH 6.0 (4.5-8.0) Ur Specific [place] 1.015 (1.000-1.035) Urine Protein Negative (Negative) Urine Glucose (UA) Negative (Negative) g/dL Urine Ketones 1+ H (NEGATIVE) Urine Occult Blood Trace-intact (Negative) Urine Nitrate Negative (Negative) Urine Bilirubin Negative (NEGATIVE) Urine Urobilinogen 0.2 (0.2) E.U./dL Ur Leukocyte Esterase Negative (NEGATIVE) Urine RBC 1-5/hpf (0-5/HPF) Urine WBC None seen (0-5/HPF) Ur Squamous Epith Cells 0-1 /hpf (0-5/HPF) Ur Transition Epith Cell 1-5/hpf (0-5/HPF) Urine Bacteria None seen (None) Ur Culture Indicated? Cult not indicated MDM Narrative Medical decision making narrative: 31-year-old at 15 weeks with some minor spotting appreciated earlier today. Viable intrauterine fetus with no evidence of active bleeding or subchorionic hemorrhage. She does have an anterior low- lying placenta that is not a placenta previa. There is no evidence of urinary tract infection. She is safe for home discharge and will follow-up with her OBGYN. Discharge Plan Departure Patient Disposition: Home Clinical Impression: Vaginal spotting Qualifiers: Weeks of gestation: 15 weeks Qualified Code(s): Z3A.15 - 15 weeks gestation of Instructions: DI for Vaginal Bleeding During Activity Restrictions/Additional Instructions: Thank you for coming in today Your baby looks perfect. The baby is moving around with heart rate in the 140s I did not see any signs of active bleeding. Your placenta is in the front of your uterus and comes down very close to your cervix. There is no bleeding under the placenta in the placenta does not cover your cervix. You do not have a bladder infection today. At this time, I am reassured. Please keep your appointment with your OB doctor next week. If you have worsening symptoms or concerns please feel free to return to the ER Prescriptions: No Action Probiotic 1 cap PO DAILY RF: 0 ondansetron 4 mg tablet,disintegrating 4 mg PO TID PRN (Reason: nausea and vomiting) Qty: 9 RF: 0 Stand Alone Forms: Work Release Note
[2021-02-19 12:40] LABS: Bacteria Urine None Seen; WBC Urine None Seen (0-5/HPF)
[2021-02-19 12:42] LABS: Appearance Urine UA CLEAR; Bilirubin Urine UA NEGATIVE (NEGATIVE); Color Urine UA YELLOW; Glucose Urine UA NEGATIVE (Negative); Ketones Urine UA 1+ (NEGATIVE); Leukocyte Esterase Urine UA NEGATIVE (NEGATIVE); Nitrite Urine UA NEGATIVE (Negative); Occult Blood Urine UA TRACE-INTACT (Negative); Protein Urine UA NEGATIVE (Negative); Specific Gravity Urine UA 1.015 (1.000-1.035); Urobilinogen Urine UA 0.2 E.U./dL (0.2)
[2021-02-19 12:50] LABS: Culture Indicated Urine Cult Not Indicated; RBC Urine 1-5/HPF (0-5/HPF); Squamous Epithelial Cell Urine 0-1 /HPF (0-5/HPF); Transitional Epi Cells Urine 1-5/HPF (0-5/HPF)
[2021-02-19 13:09] VITALS: BP 118/62; PULSE 68; RESP 16; O2SAT 99
--- NOTE | 2021-02-19 13:57 | PC.NURSE ---
at bedside for US, FHT performed by .
== END 2021-02-19 13:11 | disposition home or self-care (01) ==
PROVIDERS: Emergency Provider Emergency Medicine
DX: O46.92 Antepartum hemorrhage, unspecified, second trimester (principal); Z3A.15 15 weeks gestation of pregnancy
CPT/HCPCS: 81001; 99281; 99282

== ENCOUNTER 2021-04-02 20:47 | Emergency (ER) | payer BC, SELFPAY ==
[2021-04-02 20:47] VITALS: BP 142/98; PULSE 109; RESP 16; TEMP 36.8; O2SAT 98; BMI 51.2
[2021-04-02] MEDS: OXYCODONE/ACETAMINOPHEN 5/325 TABLET 1 TAB PO (21:06)
--- NOTE | 2021-04-02 22:50 | ED.EXTPRO ---
HPI - Extremity Problem General Chief complaint: Extremity Problem,Nontraumatic Stated complaint: rt shoulder and head pain Time Seen by Provider: 04/02/21 20:59 Source: patient and family Mode of arrival: Wheelchair History of Present Illness HPI Narrative: 31-year-old woman with diabetes currently at 19 weeks gestational age prevents with severe right shoulder and right upper quadrant pain that is been worsening over the last 2-3 days. 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 Over the last 3 days she has noticed increasing neck pain radiating out into her shoulder to the point where she is having difficulty even raising her arm. She also complains of developing right upper quadrant pain that does not appear to be related to eating. At this point the right upper quadrant pain is overshadowed by the pain from her neck and shoulder. Related Data Home Medications Medication Instructions Recorded Confirmed Probiotic 1 cap PO DAILY 01/05/18 01/05/18 Previous Rx's Medication Instructions Recorded ondansetron 4 mg disintegrating 4 mg PO TID PRN #9 tab 01/05/18 tablet oxycodone-acetaminophen 5 mg-325 1 tab PO Q6H PRN #8 tab 04/02/21 mg tablet Allergies Allergy/AdvReac Type Severity Reaction Status Date / Time No Known Drug Allergies Allergy Verified 08/20/19 19:46 Review of Systems Review of Systems Narrative: Remainder of complete review of systems is otherwise unremarkable except for that included in the HPI. Patient History Medical History Irregular menses Mixed anxiety depressive disorder (02/19/16) Surgical History No significant past surgical history Social History Smoking Status: Former smoker Smoking Status: Former smoker alcohol intake frequency: 0-2 drinks per day Substance Use Type: does not use Exam Narrative Exam Narrative: General: Alert appropriate in no acute distress HEENT: Tenderness along the paracervical muscles right side into the trapezius muscle that reproduces her pain. She does not have any numbness or tingling down her arm. Passive range of motion allows for internal and external rotation and abduction to approximately 45?. There are no skin changes Respiratory: Able to speak in full sentences, no obvious respiratory distress Cardiac: Regular rate and rhythm no murmurs Abdomen: Mild right upper quadrant tenderness without rebound or guarding. She is gravid. Skin: No obvious rashes, warm and dry Neurologic: Grossly intact no obvious asymmetries or abnormalities Psych: appropriate insight and affect, cooperative Initial Vital Signs Initial Vital Signs: Vital Signs Temperature 98.3 F 04/02/21 20:47 Pulse Rate 109 H 04/02/21 20:47 Respiratory Rate 16 04/02/21 20:47 Blood Pressure 142/98 H 04/02/21 20:47 Pulse Oximetry 98 04/02/21 20:47 Course Orders Ordered: Discontinued Medications Oxycodone/Acetaminophen (Oxycodone/Acetaminophen 5/325 Tablet) 1 tab PO NOW ONE Stop: 04/02/21 21:01 Last Admin: 04/02/21 21:06 Dose: 1 tab Documented by: DENNY Vital Signs Vital signs: Vital Signs - 8 hr 04/02/21 23:12 Pulse Rate 99 H Respiratory Rate 16 Blood Pressure 116/73 Pulse Oximetry 97 MDM - Extremity (Nontraumatic) MDM Narrative Medical decision making narrative: 31-year-old woman with severe right shoulder pain that appears to be radicular in nature. Likely positional and related to work tasks. She was feeling significantly improved with a single Percocet. The right upper quadrant pain has resolved at this point labs are unremarkable there is no evidence of acute cholecystitis. She has an appointment with her OBGYN coming up in 4 days and an abdominal ultrasound scheduled shortly there after. Suggested that she talk to her OBGYN about adding an abdominal ultrasound to the OB ultrasound to see if she does in fact have gallstones. She is given information on gallstones as well as radicular neck pain. A brief course of Percocet for the neck pain as well as the sling with suggestions for ice use for pain control. She is safe for home discharge Discharge Plan Departure Patient Disposition: Home Clinical Impression: Cervical radicular pain, Abdominal pain of right upper quadrant during , antepartum Intrauterine normal Qualifiers: Trimester: second trimester Qualified Code(s): Z34.92 - Encounter for supervision of normal , unspecified, second trimester Instructions: DI for Gallstones, DI for Neck Pain Activity Restrictions/Additional Instructions: Thank you for coming in today I think the pain in your shoulder is coming from your neck. I suspect that with the moving this weekend or the vomiting that you been having you pulled your neck enough that the muscles are spasming slightly and pinching the nerves causing shoulder pain. Using the sling for a couple of days to help those muscles rest can help with pain. For medium pain, please use to Tylenol. For severe pain at use 1 Tylenol and 1 Percocet. Percocet is a narcotic and can cause constipation. With your right upper quadrant pain in your abdomen, you may have gallstones. Your blood work today was very reassuring and you do not have acute gallbladder disease that needs surgical intervention. Please talk to your OB doctor about this. He may choose to add of right upper quadrant ultrasound to look at her gallbladder to your scheduled ultrasound coming up in 2 weeks. Please continue to use your Zofran at home as needed. If you feel that you are getting worse, please return to the ER Good luck with this ! Prescriptions: New oxycodone-acetaminophen 5-325 mg tablet 1 tab PO Q6H PRN (Reason: pain) Qty: 8 RF: 0 No Action Probiotic 1 cap PO DAILY RF: 0 ondansetron 4 mg tablet,disintegrating 4 mg PO TID PRN (Reason: nausea and vomiting) Qty: 9 RF: 0 Stand Alone Forms: Work Release Note
[2021-04-02 23:12] VITALS: BP 116/73; PULSE 99; RESP 16; O2SAT 97
== END 2021-04-02 23:16 | disposition home or self-care (01) ==
PROVIDERS: Emergency Provider Emergency Medicine
DX: O26.892 Other specified pregnancy related conditions, second trimester (principal); M54.2 Cervicalgia; M25.511 Pain in right shoulder; R10.11 Right upper quadrant pain; Z3A.19 19 weeks gestation of pregnancy
CPT/HCPCS: 99283

== ENCOUNTER 2021-06-08 09:30 | Observation (INO) | payer OTHER, MEDICAID, SELFPAY ==
[2021-06-08 11:35] LABS: Appearance Urine UA SL CLOUDY; Bilirubin Urine UA NEGATIVE (NEGATIVE); Color Urine UA YELLOW; Glucose Urine UA NEGATIVE (Negative); Ketones Urine UA 1+ (NEGATIVE); Leukocyte Esterase Urine UA 2+ (NEGATIVE); Nitrite Urine UA NEGATIVE (Negative); Occult Blood Urine UA NEGATIVE (Negative); Protein Urine UA NEGATIVE (Negative); Urobilinogen Urine UA 0.2 E.U./dL (0.2)
[2021-06-08 12:34] LABS: Add Manual Diff / Slide Review NO; Basophils Absolute Auto 0 /uL (0-100); Basophils Percent Auto 0.2 % (0-2); Eosinophils Absolute Auto 0 /uL (0-450); Eosinophils Percent Auto 0.1 % (2-4); Hematocrit 33.7 % (36-46); Hemoglobin 11.1 g/dL (12.0-16.0); Lymphocytes Absolute Auto 1600 /uL (1100-4500); Mean Corpuscular Volume 81.7 fL (80-100); Monocytes Absolute Auto 800 /uL (0-900); Monocytes Percent Auto 7.3 % (3-14); Neutrophils Absolute Auto 8900 /uL (1500-7000); Neutrophils Percent Auto 78.4 % (50-75); Platelet Count 197 X10^3/uL (150-400); Red Blood Cell Count 4.12 X10^6/uL (4.0-5.2); Red Cell Distribution Width 17.4 % (11.6-14.8); White Blood Cell Count 11.4 X10^3/uL (4.5-11.0)
[2021-06-08 12:45] LABS: RBC Urine None Seen (0-5/HPF); Squamous Epithelial Cell Urine 10-30 /HPF (0-5/HPF); WBC Urine 1-5/HPF (0-5/HPF)
[2021-06-08 12:46] LABS: Bacteria Urine Moderate (10-30); Culture Indicated Urine Cult Not Indicated
--- NOTE | 2021-06-08 13:03 | PM.OBTRLD ---
Visit Information Visit Information Date of evaluation: 06/08/21 On-call OB Provider: Swapna Interiano Reason for Evaluation: Yes other Comments/Additional reasons for admission: right abdominal pain, flank pain Vital Signs Vital Signs: BP 131/73, P 104, T 36.8 PFSH Medical History Irregular menses Mixed anxiety depressive disorder (02/19/16) Surgical History No significant past surgical history Social History Smoking Status: Former smoker Review of Systems Review of Systems Narrative: Pt. c/o Right abdominal pain 12/21. Pain is constant not crampy. No leakage of fluid, vaginal bleeding, fevers. GFM. Objective Labs Result Diagrams: 06/08/21 12:13 Labs: Laboratory Results - last 24 hr 06/08/21 06/08/21 11:15 12:13 WBC 11.4 H RBC 4.12 Hgb 11.1 L Hct 33.7 L MCV 81.7 MCH 27.0 MCHC 33.0 RDW 17.4 H Plt Count 197 Neut % (Auto) 78.4 H Lymph % (Auto) 14.[address] % (Auto) 7.3 Eos % (Auto) 0.1 L Baso % (Auto) 0.2 Neut # (Auto) 8900 H Lymph # (Auto) 1600 [place] # (Auto) 800 Eos # (Auto) 0 Baso # (Auto) 0 Urine Color Yellow Urine Appearance Sl cloudy Urine pH 7.0 Ur Specific [place] 1.010 Urine Protein Negative Urine Glucose (UA) Negative Urine Ketones 1+ H Urine Occult Blood Negative Urine Nitrate Negative Urine Bilirubin Negative Urine Urobilinogen 0.2 Ur Leukocyte Esterase 2+ H Urine RBC None seen Urine WBC 1-5/hpf Ur Squamous Epith Cells 10-30 /hpf H D Urine Bacteria Moderate (10-30) H Ur Culture Indicated? Cult not indicated Evaluation Evaluation Baseline heart rate: 150 Variability: Moderate (11-25) monitor accelerations: Present Status: Category l Cervical dilation (cm): 0 Cervical effacement (%): 0 station: -4 Diagnosis, Plan/Disposition Final Diagnosis (1) Urinary tract infection affecting care of mother in third trimester, antepartum: Status: Acute Plan/Disposition Plan: UTI vs hydronephrosis. Rx Macrobid, rest on left side, Tylenol, heat , push fluids. Follow up with OB provider OB Disposition: home
[2021-06-08] MEDS: NITROFURANTOIN ER 100 MG CAPSULE PO (13:31)
[2021-06-08 13:39] VITALS: BP 131/73; PULSE 114; RESP 20; TEMP 36.8
== END 2021-06-08 13:59 | disposition home or self-care (01) ==
PROVIDERS: Admitting Provider Specialist; Referring Provider Specialist; Visit Provider Specialist
DX: O23.43 Unspecified infection of urinary tract in pregnancy, third trimester (principal); O24.414 Gestational diabetes mellitus in pregnancy, insulin controlled; N39.0 Urinary tract infection, site not specified; Z3A.30 30 weeks gestation of pregnancy
CPT/HCPCS: 59025; 81001; 82962; 85025; G0378; G0379

== ENCOUNTER 2021-07-28 16:46 | Emergency (ER) | payer OTHER, MEDICAID, SELFPAY ==
[2021-07-28] VITALS (10 sets, daily range): BP systolic 116–133; BP diastolic 58–92; PULSE 112–126; RESP 8–28; TEMP 36.6; O2SAT 97–100; BMI 54.1
[2021-07-28 17:34] LABS: Lactate (Lactic Acid) 1.1 mmol/L (0.7-2.1)
[2021-07-28 17:35] LABS: Add Manual Diff / Slide Review NO; Alanine Aminotransferase 19 IU/L (<35); Albumin Globulin Ratio 1.1 (1.0-2.8); Alkaline Phosphatase 151 U/L (38-126); Aspartate Aminotransferase 26 IU/L (14-36); BUN Creatinine Ratio 10.7 (6-22); Basophils Absolute Auto 0 /uL (0-100); Basophils Percent Auto 0.3 % (0-2); Bilirubin Total 0.5 mg/dL (0.2-1.3); Blood Urea Nitrogen 6 mg/dL (7-17); Calcium 9.2 mg/dL (8.4-10.2); Carbon Dioxide 22 mmol/L (22-32); Chloride 107 mmol/L (98-107); Eosinophils Absolute Auto 0 /uL (0-450); Eosinophils Percent Auto 0.5 % (2-4); Estimated Glomerular Filt Rate > 60.0 mL/min (>60); Globulin 3.7 g/dL (1.7-4.1); Glucose 91 mg/dL (70-100); HEMOLYSIS < 15 (0-50); Hematocrit 33.8 % (36-46); Hemoglobin 11.7 g/dL (12.0-16.0); Lymphocytes Absolute Auto 1100 /uL (1100-4500); Lymphocytes Percent Auto 14.4 % (25-40); Mean Corpuscular HGB Conc 34.6 % (30-36); Mean Corpuscular Hemoglobin 28.4 PG (26-34); Mean Corpuscular Volume 82.2 fL (80-100); Monocytes Absolute Auto 1000 /uL (0-900); Monocytes Percent Auto 13.7 % (3-14); Neutrophils Absolute Auto 5400 /uL (1500-7000); Neutrophils Percent Auto 71.1 % (50-75); Platelet Count 212 X10^3/uL (150-400); Potassium 4.1 mmol/L (3.4-5.1); Red Blood Cell Count 4.11 X10^6/uL (4.0-5.2); Red Cell Distribution Width 17.6 % (11.6-14.8); Sodium 135 mmol/L (137-145); Total Protein 7.7 g/dL (6.3-8.2); White Blood Cell Count 7.6 X10^3/uL (4.5-11.0)
[2021-07-28] MEDS: SODIUM CHLORIDE 0.9% 1,000 ML 1000 ML IV ×2 (17:51→19:13)
[2021-07-28 18:08] LABS: Appearance Urine UA CLEAR; Bilirubin Urine UA NEGATIVE (NEGATIVE); Color Urine UA YELLOW; Glucose Urine UA NEGATIVE (Negative); Ketones Urine UA NEGATIVE (NEGATIVE); Leukocyte Esterase Urine UA NEGATIVE (NEGATIVE); Nitrite Urine UA NEGATIVE (Negative); Occult Blood Urine UA 1+ (Negative); Protein Urine UA NEGATIVE (Negative); Specific Gravity Urine UA 1.015 (1.000-1.035); Urobilinogen Urine UA 0.2 E.U./dL (0.2)
[2021-07-28 18:19] LABS: Amorphous Sediment Urine 2+; Bacteria Urine Moderate (10-30); Culture Indicated Urine Cult Not Indicated; RBC Urine 5-10/HPF (0-5/HPF); Squamous Epithelial Cell Urine 5-10 /HPF (0-5/HPF); WBC Urine None Seen (0-5/HPF)
[2021-07-28 18:35] LABS: Creatine Kinase 41 U/L (30-135)
[2021-07-28 18:47] LABS: Troponin I < 0.012 ng/mL (0.01-0.034)
--- NOTE | 2021-07-28 19:08 | ED_ITS ---
HPI - General Adult General Chief complaint: Shortness of Breath/Dyspnea Stated complaint: COVID +,37 Wks Preg,SOB, Body Aches Time Seen by Provider: 07/28/21 18:19 Source: patient Mode of arrival: Ambulatory History of Present Illness HPI narrative: 31-year-old at 37 weeks with gestational diabetes, low amniotic fluid followed by perinatologist at [facility]. Scheduled for on August 12. Complains of COVID like symptoms starting 4 days ago with fever, aches, cough, sneezing, headache, sore throat and today notice is loss of smell. She reports mild baseline cough, no lower extremity edema, increased work of breathing and complains of palpitations/rapid heart rate. She was seen by her perinatologist earlier today with an NST that was reassuring. She comes in today with dyspnea concerns. She describes no loss of fluid, active fetus. She notes that she is vaccinated against COVID. She is not complaining of contractions. Related Data Home Medications Medication Instructions Recorded Confirmed Probiotic 1 cap PO DAILY 01/05/18 01/05/18 Previous Rx's Medication Instructions Recorded ondansetron 4 mg disintegrating 4 mg PO TID PRN #9 tab 01/05/18 tablet oxycodone-acetaminophen 5 mg-325 1 tab PO Q6H PRN #8 tab 04/02/21 mg tablet nitrofurantoin macrocrystal 100 mg 100 mg PO BID #14 cap 06/08/21 capsule (Macrodantin) Allergies Allergy/AdvReac Type Severity Reaction Status Date / Time metoclopramide AdvReac Drowsy Verified 07/28/21 16:59 Review of Systems Review of Systems Narrative: Remainder of complete review of systems is otherwise unremarkable except for that included in the HPI. Patient History Medical History (Updated 07/28/21 @ 21:03 by Ella Nina MD) Irregular menses Mixed anxiety depressive disorder (02/19/16) Surgical History (Updated 07/28/21 @ 20:46 by Ella Nina MD) History of No significant past surgical history Social History Smoking Status: Former smoker Smoking Status: Former smoker alcohol intake frequency: 0-2 drinks per day Substance Use Type: does not use Exam Initial Vital Signs Initial Vital Signs: Vital Signs Temperature 97.8 F 07/28/21 16:53 Pulse Rate 126 H 07/28/21 16:53 Respiratory Rate 22 07/28/21 16:53 Blood Pressure 127/92 H 07/28/21 16:53 Pulse Oximetry 97 07/28/21 16:53 General: Healthy appearing, in no acute distress. Able to give a complete and coherent history. Well-nourished well-developed HEENT: Moist mucous membranes, normal sclera with reactive pupils, Neck: No cervical adenopathy, supple Respiratory: Lungs are clear to auscultation, no wheezing no rales no rhonchi. Full and symmetrical air movement Cardiac: Regular rate and rhythm no murmurs no bruits Abdomen: gravid, Soft, nontender, good bowel tones, no flank pain Skin: Warm and dry, no rashes Neurologic: Grossly neurologically intact with no obvious asymmetries or abnormalities Extremities: No trauma, well perfused, no edema Psych: Cooperative, appropriate insight and affect Course Orders Ordered: ED Orders 07/28/21 16:59 EKG-12 Lead Stat Measure peak expiratory flow ONCE RT Consult Eval and Treat Now 07/28/21 17:10 Complete Blood Count AUTO DIFF Stat Comprehensive Metabolic Panel Stat D Dimer Stat Lactate (Lactic Acid) Stat 07/28/21 17:20 EKG-12 Lead Routine 07/28/21 17:54 Urinalysis and Microscopic Stat 07/28/21 18:23 Troponin & CK Cardiac Panel Stat Discontinued Medications Sodium Chloride (Normal Saline 0.9%) 1,000 mls @ 1,000 mls/hr IV BOLUS ONE Stop: 07/28/21 18:45 Last Infusion: 07/28/21 19:13 Dose: 1,000 mls/hr Documented by: Admin: 07/28/21 17:51 Dose: 1,000 mls/hr Documented by: WEN Sodium Chloride (Normal Saline 0.9%) 1,000 mls @ 1,000 mls/hr IV BOLUS ONE Stop: 07/28/21 20:08 Last Admin: 07/28/21 19:13 Dose: 1,000 mls/hr Documented by: WEN Vital Signs Vital signs: Vital Signs - 8 hr 07/28/21 16:53 07/28/21 17:58 07/28/21 17:59 Temperature 97.8 F Pulse Rate 126 H 122 H 125 H Respiratory Rate 22 Blood Pressure 127/92 H 133/76 Pulse Oximetry 97 98 98 07/28/21 18:00 07/28/21 18:30 07/28/21 19:00 Temperature Pulse Rate 124 H 112 H 112 H Respiratory Rate 28 H 8 L Blood Pressure 131/77 131/63 131/76 Pulse Oximetry 97 100 99 07/28/21 19:30 07/28/21 20:05 Temperature Pulse Rate 113 H 120 H Respiratory Rate Blood Pressure 116/64 Pulse Oximetry 99 99 Medical Decision Making Lab Data Result diagrams: 07/28/21 17:10 07/28/21 17:10 Labs: Lab Results 07/28/21 07/28/21 07/28/21 Range/Units 17:10 17:10 17:10 WBC 7.6 (4.5-11.0) X10^3/uL RBC 4.11 (4.0-5.2) X10^6/uL Hgb 11.7 L (12.0-16.0) g/dL Hct 33.8 L (36-46) % MCV 82.2 (80-100) fL MCH 28.4 (26-34) PG MCHC 34.6 (30-36) % RDW 17.6 H (11.6-14.8) % Plt Count 212 (150-400) X10^3/uL Neut % (Auto) 71.1 (50-75) % Lymph % (Auto) 14.4 L (25-40) % [place] % (Auto) 13.7 (3-14) % Eos % (Auto) 0.5 L (2-4) % Baso % (Auto) 0.3 (0-2) % Neut # (Auto) 5400 (7069-1663) /uL Lymph # (Auto) 1100 (8096-8893) /uL [place] # (Auto) 1000 H (0-900) /uL Eos # (Auto) 0 (0-450) /uL Baso # (Auto) 0 (0-100) /uL D-Dimer (<230) ng/mL Sodium 135 L (137-145) mmol/L Potassium 4.1 (3.4-5.1) mmol/L Chloride 107 (98-107) mmol/L Carbon Dioxide 22 (22-32) mmol/L BUN 6 L (7-17) mg/dL Creatinine 0.56 (0.52-1.04) mg/dL Estimated GFR > 60.0 (>60) mL/min BUN/Creatinine Ratio 10.7 (6-22) Glucose 91 (70-100) mg/dL Lactate 1.1 (0.7-2.1) mmol/L Calcium 9.2 (8.4-10.2) mg/dL Total Bilirubin 0.5 (0.2-1.3) mg/dL AST 26 (14-36) IU/L ALT 19 (<35) IU/L Alkaline Phosphatase 151 H (38-126) U/L Total Creatine Kinase (30-135) U/L CK-MB (CK-2) CK-MB (CK-2) Rel Index Troponin I (0.01-0.034) ng/mL Total Protein 7.7 (6.3-8.2) g/dL Albumin 4.0 (3.5-5.0) g/dL Globulin 3.7 (1.7-4.1) g/dL Albumin/Globulin Ratio 1.1 (1.0-2.8) Urine Color Urine Appearance Urine pH (4.5-8.0) Ur Specific [place] (1.000-1.035) Urine Protein (Negative) Urine Glucose (UA) (Negative) g/dL Urine Ketones (NEGATIVE) Urine Occult Blood (Negative) Urine Nitrate (Negative) Urine Bilirubin (NEGATIVE) Urine Urobilinogen (0.2) E.U./dL Ur Leukocyte Esterase (NEGATIVE) Urine RBC (0-5/HPF) Urine WBC (0-5/HPF) Ur Squamous Epith Cells (0-5/HPF) Amorphous Sediment Urine Bacteria (None) Ur Culture Indicated? 07/28/21 07/28/21 07/28/21 Range/Units 17:10 17:54 18:23 WBC (4.5-11.0) X10^3/uL RBC (4.0-5.2) X10^6/uL Hgb (12.0-16.0) g/dL Hct (36-46) % MCV (80-100) fL MCH (26-34) PG MCHC (30-36) % RDW (11.6-14.8) % Plt Count (150-400) X10^3/uL Neut % (Auto) (50-75) % Lymph % (Auto) (25-40) % [place] % (Auto) (3-14) % Eos % (Auto) (2-4) % Baso % (Auto) (0-2) % Neut # (Auto) (1636-8580) /uL Lymph # (Auto) (0496-7921) /uL [place] # (Auto) (0-900) /uL Eos # (Auto) (0-450) /uL Baso # (Auto) (0-100) /uL D-Dimer 746 H (<230) ng/mL Sodium (137-145) mmol/L Potassium (3.4-5.1) mmol/L Chloride (98-107) mmol/L Carbon Dioxide (22-32) mmol/L BUN (7-17) mg/dL Creatinine (0.52-1.04) mg/dL Estimated GFR (>60) mL/min BUN/Creatinine Ratio (6-22) Glucose (70-100) mg/dL Lactate (0.7-2.1) mmol/L Calcium (8.4-10.2) mg/dL Total Bilirubin (0.2-1.3) mg/dL AST (14-36) IU/L ALT (<35) IU/L Alkaline Phosphatase (38-126) U/L Total Creatine Kinase 41 (30-135) U/L CK-MB (CK-2) TNP CK-MB (CK-2) Rel Index TNP Troponin I < 0.012 (0.01-0.034) ng/mL Total Protein (6.3-8.2) g/dL Albumin (3.5-5.0) g/dL Globulin (1.7-4.1) g/dL Albumin/Globulin Ratio (1.0-2.8) Urine Color Yellow Urine Appearance Clear Urine pH 6.0 (4.5-8.0) Ur Specific [place] 1.015 (1.000-1.035) Urine Protein Negative (Negative) Urine Glucose (UA) Negative (Negative) g/dL Urine Ketones Negative (NEGATIVE) Urine Occult Blood 1+ H (Negative) Urine Nitrate Negative (Negative) Urine Bilirubin Negative (NEGATIVE) Urine Urobilinogen 0.2 (0.2) E.U./dL Ur Leukocyte Esterase Negative (NEGATIVE) Urine RBC 5-10/hpf H (0-5/HPF) Urine WBC None seen (0-5/HPF) Ur Squamous Epith Cells 5-10 /hpf H (0-5/HPF) Amorphous Sediment 2+ Urine Bacteria Moderate (10-30) H (None) Ur Culture Indicated? Cult not indicated MDM Narrative Medical decision making narrative: 31-year-old at 37 weeks with complications and routine antepartum testing already scheduled presents with 4-5 days of upper respiratory symptoms and a positive COVID test today.? She did have a reassuring nonstress test this morning.? On arrival in the emergency department she has a heart rate at 120 sinus rhythm blood pressure and oxygenation reassuring.? Her D-dimer is within normal limits for 3rd trimester normal limits being [id number].? At this time I think she is gravid, mild restrictive lung issues due to her fetus, mild baseline tachycardia and COVID-19 without significant complications. Care is briefly reviewed with Dr Mackay, Ob on-call for Dr Boykin.? Reviewed findings and plan and she agrees.? She will let nursing staff know that patient is COVID positive and antepartum testing will continue as scheduled. Clearly reviewed signs and symptoms of worsening COVID and reasons to return to the emergency department.? Patient is safe for home discharge Discharge Plan Departure Patient Disposition: Home Clinical Impression: COVID-19 affecting in third trimester Qualifiers: Weeks of gestation: 37 weeks Qualified Code(s): Z3A.37 - 37 weeks gestation of Instructions: DI for COVID-19 (Suspected or Confirmed ) Activity Restrictions/Additional Instructions: Thank you for coming in today You do have COVID-19. Your oxygen levels are very reassuring. You do not need additional oxygen nor do need to be in the hospital In the ER your given a bit of fluid to help with your heart rate however your heart rate remains in a sinus tachycardia. This is not that uncommon near the end of particularly when you do have a viruses making you feel unwell. Your baby is doing well. Please continue the daily kick counts and make sure that you keep your an NST appointment for the end of the week. I did talk to the doctor on-call for Dr Boykin. She will let nursing staff know about your ER visit. If you find that you are getting worse please make sure you return to the emergency department Prescriptions: No Action nitrofurantoin macrocrystal [Macrodantin] 100 mg capsule 100 mg PO BID Qty: 14 0RF Rx Instructions: must administer with a meal/food Probiotic 1 cap PO DAILY 0RF ondansetron 4 mg tablet,disintegrating 4 mg PO TID PRN (Reason: nausea and vomiting) Qty: 9 0RF oxycodone-acetaminophen 5-325 mg tablet 1 tab PO Q6H PRN (Reason: pain) Qty: 8 0RF Referrals: Roel Boykin MD [Primary Care Provider] -
[2021-07-28 19:48] LABS: D Dimer 746 ng/mL (<230)
== END 2021-07-28 21:17 | disposition home or self-care (01) ==
PROVIDERS: Emergency Medicine; Emergency Provider Emergency Medicine; PCP Obstetrics & Gynecology
DX: O98.513 Other viral diseases complicating pregnancy, third trimester (principal); U07.1 COVID-19; O99.413 Diseases of the circulatory system complicating pregnancy, third trimester; R00.0 Tachycardia, unspecified; Z3A.37 37 weeks gestation of pregnancy
CPT/HCPCS: 36415; 80053; 81001; 82550; 83605; 84484; 85025; 85379; 93005; 93010; 96360; 96361; 99284

== ENCOUNTER 2021-08-21 16:23 | Emergency (ER) | payer OTHER, MEDICAID, SELFPAY ==
[2021-08-21] VITALS (16 sets, daily range): BP systolic 112–149; BP diastolic 62–85; PULSE 86–96; RESP 16–39; TEMP 36.6–36.8; O2SAT 96–100; BMI 51.5
[2021-08-21 17:08] LABS: Appearance Urine UA CLEAR; Bilirubin Urine UA NEGATIVE (NEGATIVE); Color Urine UA YELLOW; Glucose Urine UA NEGATIVE (Negative); Ketones Urine UA NEGATIVE (NEGATIVE); Nitrite Urine UA NEGATIVE (Negative); Protein Urine UA NEGATIVE (Negative); Urobilinogen Urine UA 0.2 E.U./dL (0.2)
[2021-08-21 17:30] LABS: pH Urine UA 5.5 (4.5-8.0)
[2021-08-21 17:31] LABS: Leukocyte Esterase Urine UA NEGATIVE (NEGATIVE); Occult Blood Urine UA 3+ (Negative)
[2021-08-21 17:34] LABS: Bacteria Urine Occasional (0-1); Culture Indicated Urine Cult Not Indicated; RBC Urine 0-1/HPF (0-5/HPF); Squamous Epithelial Cell Urine 1-5 /HPF (0-5/HPF); Transitional Epi Cells Urine 0-1/HPF (0-5/HPF); WBC Urine 1-5/HPF (0-5/HPF)
[2021-08-21 17:46] LABS: Add Manual Diff / Slide Review NO; Basophils Absolute Auto 100 /uL (0-100); Basophils Percent Auto 0.7 % (0-2); Eosinophils Absolute Auto 100 /uL (0-450); Eosinophils Percent Auto 1.8 % (2-4); Hematocrit 35.3 % (36-46); Hemoglobin 11.8 g/dL (12.0-16.0); Lymphocytes Absolute Auto 2400 /uL (1100-4500); Lymphocytes Percent Auto 29.4 % (25-40); Mean Corpuscular HGB Conc 33.3 % (30-36); Mean Corpuscular Hemoglobin 28.1 PG (26-34); Mean Corpuscular Volume 84.4 fL (80-100); Monocytes Absolute Auto 800 /uL (0-900); Monocytes Percent Auto 9.3 % (3-14); Neutrophils Absolute Auto 4800 /uL (1500-7000); Neutrophils Percent Auto 58.8 % (50-75); Platelet Count 327 X10^3/uL (150-400); Red Blood Cell Count 4.19 X10^6/uL (4.0-5.2); Red Cell Distribution Width 17.4 % (11.6-14.8); White Blood Cell Count 8.1 X10^3/uL (4.5-11.0)
[2021-08-21 17:51] LABS: Alanine Aminotransferase 22 IU/L (<35); Albumin 4.3 g/dL (3.5-5.0); Albumin Globulin Ratio 1.2 (1.0-2.8); Alkaline Phosphatase 98 U/L (38-126); Aspartate Aminotransferase 28 IU/L (14-36); BUN Creatinine Ratio 18.4 (6-22); Bilirubin Total 0.6 mg/dL (0.2-1.3); Blood Urea Nitrogen 14 mg/dL (7-17); Calcium 9.4 mg/dL (8.4-10.2); Carbon Dioxide 27 mmol/L (22-32); Chloride 106 mmol/L (98-107); Estimated Glomerular Filt Rate > 60.0 mL/min (>60); Globulin 3.7 g/dL (1.7-4.1); Glucose 85 mg/dL (70-100); HEMOLYSIS < 15 (0-50); Lipase 54 U/L (23-300); Sodium 139 mmol/L (137-145)
--- NOTE | 2021-08-21 18:06 | ED_ITS ---
HPI - Abdominal Pain General Chief Complaint: Abdominal Pain Stated Complaint: Abd Pain, Post Surgery Time Seen by Provider: 08/21/21 18:04 Source: patient Mode of arrival: Ambulatory History of Present Illness HPI narrative: 31F former smoker with recent at [place] on August 12 presents today with worsening left lower quadrant pain. She had initially presented to urgent care and was sent here for complete workup. She denies fever, chills nor nausea or vomiting. She has had no vaginal bleeding, discharge or urinary comp laints. She states her pain is worse when she moves and improves with rest. She denies any redness or drainage at her incision site. She denies runny nose, sore throat or cough Related Data Home Medications Medication Instructions Recorded Confirmed Probiotic 1 cap PO DAILY 01/05/18 08/21/21 Previous Rx's Medication Instructions Recorded ondansetron 4 mg disintegrating 4 mg PO TID PRN #9 tab 01/05/18 tablet oxycodone-acetaminophen 5 mg-325 1 tab PO Q6H PRN #8 tab 04/02/21 mg tablet nitrofurantoin macrocrystal 100 mg 100 mg PO BID #14 cap 06/08/21 capsule (Macrodantin) Allergies Allergy/AdvReac Type Severity Reaction Status Date / Time metoclopramide AdvReac Drowsy Verified 08/21/21 16:16 Review of Systems Review of Systems Narrative: GENERAL: Denies chills, fatigue, malaise, fever, sweats. HEENT: Denies sinus pain, ear pain, sore throat, difficulty swallowing, dizziness. RESPIRATORY: Denies dyspnea, cough, wheezing, hemoptysis, sputum. CARDIOVASCULAR: Denies chest pain, palpitations, orthopnea, edema, GASTROINTESTINAL: See HPI : Denies dysuria, frequency, incontinence, hematuria, urinary retention. MUSCULOSKELETAL: denies weakness, joint pain, or bony pain SKIN: Denies rash, skin lesions, or other NEUROLOGIC: Denies weakness, headache, numbness, change in speech, confusion, seizures, incoordination. PSYCHIATRIC: No concerning psychosocial issues. 12 point review of systems is negative except for those stated above Patient History Medical History Irregular menses Mixed anxiety depressive disorder (02/19/16) Surgical History History of No significant past surgical history Social History Smoking Status: Former smoker Smoking Status: Former smoker alcohol intake frequency: 0-2 drinks per day Substance Use Type: does not use Exam Narrative Exam Narrative: GENERAL: [31 year old patient appears stated age. Well-developed patient, in mild distress. HEAD: Atraumatic. Normocephalic. EYES: Pupils equal round and reactive. Extraocular motions intact. No scleral icterus. No injection or drainage. ENT: Nose without bleeding, purulent drainage. Throat without erythema, tonsillar hypertrophy or exudate. Airway patent. NECK: Trachea midline. Non tender CARDIOVASCULAR: Regular rate and rhythm without murmurs, gallops, or rubs. RESPIRATORY: Clear to auscultation. Breath sounds equal bilaterally. No wheezes, rales, or rhonchi. GASTROINTESTINAL: Abdomen soft, mild tenderness in the left lower quadrant wi thout guarding, no overlying erythema, induration or fluctuance or guarding. Nondistended. Incision is clean, dry and intact without evidence of dehiscence EXTREMITIES: No edema or joint tenderness. BACK: Nontender without deformity or crepitance. No flank tenderness. NEURO: AOx3. SKIN: No rash or erythema of visible areas Initial Vital Signs Initial Vital Signs: Vital Signs Temperature 97.8 F 08/21/21 16:32 Pulse Rate 96 H 08/21/21 16:32 Respiratory Rate 16 08/21/21 16:32 Blood Pressure 119/73 08/21/21 16:32 Pulse Oximetry 97 08/21/21 16:32 Course Orders Ordered: ED Orders 08/21/21 18:06 CT abdomen pelvis w con Stat Vital Signs Vital signs: Vital Signs - 8 hr 08/21/21 19:00 08/21/21 19:06 08/21/21 19:20 Temperature Pulse Rate 91 H 94 H 95 H Respiratory Rate 33 H 29 H 19 Blood Pressure 149/62 H 137/68 Pulse Oximetry 97 97 97 08/21/21 19:30 08/21/21 19:40 08/21/21 20:00 Temperature Pulse Rate 94 H 96 H 93 H Respiratory Rate 32 H 16 23 Blood Pressure 147/79 H Pulse Oximetry 96 98 99 08/21/21 20:01 08/21/21 20:06 Temperature 98.3 F Pulse Rate 95 H Respiratory Rate 27 H Blood Pressure 140/82 Pulse Oximetry 99 MDM - Abdominal Pain Lab Data Result diagrams: 08/21/21 17:15 08/21/21 17:15 Labs: Lab Results 08/21/21 08/21/21 08/21/21 Range/Units 17:05 17:15 17:15 WBC 8.1 (4.5-11.0) X10^3/uL RBC 4.19 (4.0-5.2) X10^6/uL Hgb 11.8 L (12.0-16.0) g/dL Hct 35.3 L (36-46) % MCV 84.4 (80-100) fL MCH 28.1 (26-34) PG MCHC 33.3 (30-36) % RDW 17.4 H (11.6-14.8) % Plt Count 327 (150-400) X10^3/uL Neut % (Auto) 58.8 (50-75) % Lymph % (Auto) 29.4 (25-40) % [place] % (Auto) 9.3 (3-14) % Eos % (Auto) 1.8 L (2-4) % Baso % (Auto) 0.7 (0-2) % Neut # (Auto) 4800 (3622-7606) /uL Lymph # (Auto) 2400 (1625-8420) /uL [place] # (Auto) 800 (0-900) /uL Eos # (Auto) 100 (0-450) /uL Baso # (Auto) 100 (0-100) /uL Sodium 139 (137-145) mmol/L Potassium 4.0 (3.4-5.1) mmol/L Chloride 106 (98-107) mmol/L Carbon Dioxide 27 (22-32) mmol/L BUN 14 (7-17) mg/dL Creatinine 0.76 (0.52-1.04) mg/dL Estimated GFR > 60.0 (>60) mL/min BUN/Creatinine Ratio 18.4 (6-22) Glucose 85 (70-100) mg/dL Calcium 9.4 (8.4-10.2) mg/dL Total Bilirubin 0.6 (0.2-1.3) mg/dL AST 28 (14-36) IU/L ALT 22 (<35) IU/L Alkaline Phosphatase 98 (38-126) U/L Total Protein 8.0 (6.3-8.2) g/dL Albumin 4.3 (3.5-5.0) g/dL Globulin 3.7 (1.7-4.1) g/dL Albumin/Globulin Ratio 1.2 (1.0-2.8) Lipase 54 (23-300) U/L Urine Color Yellow Urine Appearance Clear Urine pH 5.5 (4.5-8.0) Ur Specific [place] 1.020 (1.000-1.035) Urine Protein Negative (Negative) Urine Glucose (UA) Negative (Negative) g/dL Urine Ketones Negative (NEGATIVE) Urine Occult Blood 3+ H (Negative) Urine Nitrate Negative (Negative) Urine Bilirubin Negative (NEGATIVE) Urine Urobilinogen 0.2 (0.2) E.U./dL Ur Leukocyte Esterase Negative (NEGATIVE) Urine RBC 0-1/hpf (0-5/HPF) Urine WBC 1-5/hpf (0-5/HPF) Ur Squamous Epith Cells 1-5 /hpf (0-5/HPF) Ur Transition Epith Cell 0-1/hpf (0-5/HPF) Urine Bacteria Occasional (0-1) D (None) Ur Culture Indicated? Cult not indicated Point of care testing: Urine Dip Bedside Urine Glucose Negative Bedside Urine Bilirubin - Negative Bedside Urine Ketone - Negative Urine Specific [place] 1.025 Bedside Urine Occult Blood +++ Bedside Urine pH 6.0 Bedside Urine Protein - Negative Bedside Urine Urobilinogen - Negative Bedside Urine Nitrite - Negative Bedside Urine Leukocytes - Negative Esterase Imaging Data CT scan - abdomen/pelvis: Radiologist's Impression: Mara Charlton??31??F??1990 ? Allergy/Adv: metoclopramide Close Abdomen/Pelvis CT (Signed) Leopoldo Edge - 08/21/21 Abdomen/Pelvis CT (Signed) Gael Mckoy - 11/26/20 Pelvis Ultrasound (Signed) Gael Mckoy - 11/26/20 Chest X-Ray (Signed) Zachary Zapien - 08/20/19 Abdomen/Pelvis CT (Signed) Kellie Haque - 01/05/[address] [place] [address] CT Scan Report Signed Patient: Mara Charlton MR#: [id number] : 1990 Acct:[id number] Age/Sex: 31 / F Date of Service: 08/21/21 Loc: ED Accession Number: [id number] ?? Procedure: CT abdomen pelvis w con Ordering Provider: Landon Centeno D.O. PROCEDURE:? CT ABDOMEN PELVIS W CON ? INDICATIONS:? post operative pain, RLQ, recent C section ? TECHNIQUE:? After the administration of oral and IV contrast, axial sections were acquired from the lung bases to the pubic symphysis.? Coronal and sagittal reformats were performed.? For radiation dose reduction, the following was used:? automated exposure control, adjustment of mA and/or kV according to patient size. ? COMPARISON:? [facility], CT, CT ABDOMEN PELVIS W CON, 11/26/2020, 20:50. ? FINDINGS:? Image quality:? Excellent.? ? Lung bases:? Multiple small foci of ground-glass opacity at the lung bases.? No pleural effusion.? ? Heart:? No significant findings. ? ? ABDOMEN: Liver:? Prominent.? ? Gallbladder:? Unremarkable.? ? Biliary ducts:? Unremarkable.? ? Pancreas:? Unremarkable.? ? Spleen:? Unremarkable.? ? Adrenal Glands:? Unremarkable.? ? Kidneys and Ureters:? No hydronephrosis.? Small cyst at the superior pole the right kidney.? ? ? Stomach and Bowel:? Stomach, small bowel loops, and colon are unremarkable.? Normal appendix. Peritoneum:? No abnormal intraperitoneal fluid.? No free air.? ? Ventral Wall: ? scar.? Mild stranding.? Near the expected incision site.? There is mild thickening of the rectus musculature.? No unexpected fluid collection.? Tiny umbilical hernia. ? Abdominal Nodes:? No retroperitoneal or mesenteric adenopathy by size criteria.? Vessels:? Aorta and inferior vena cava are normal in size.? ? PELVIS: Pelvic Organs:? Post gravid uterus.? Small nodular density anterior to the lower uterine segment with mass effect on the urinary bladder measuring 1.4 cm, ().? This is new compared to CT 11/26/2020.? This measures approximately 40 Hounsfield units.? This could represent a small hematoma at the surgical site.? ? Bladder:? Under stone.? Small phlebolith in the pelvis. ? Pelvic Nodes: No enlarged lymph nodes.? Miscellaneous: No inguinal hernias are seen. ? ? ? Bones:? No suspicious lesion.? Iliacus condensans. ? ? IMPRESSION:? 1. Post gravid uterus.? Small nodular density anterior to the lower uterine segment with mass effect on the urinary bladder measuring 1.4 cm.? This could represent a small hematoma.? Follow-up pelvic ultrasound could be performed to demonstrate resolution. ? 2. Mild thickening and stranding at the lower abdominal wall site.? No unexpected fluid collection. ? 3. No hydronephrosis.? No small bowel obstruction.? Normal appendix.? ? Dictated by: Leopoldo Edge M.D. on 08/21/2021 at 19:25 ? ? Approved by: Leopoldo Edge M.D. on 08/21/2021 at 19:34 ? MDM Narrative Medical decision making narrative: Multiple etiologies for patient's symptoms considered including: Surgical complication including infection, hematoma or seroma versus bowel issues such as diverticulitis or bowel obstruction versus kidney stone versus other Patient's symptoms improved over duration of stay with above-stated therapies. Findings and discharge diagnosis discussed with patient/family followed by verbalization of understanding Return precautions discussed with patient/family whom verbalize understanding. Discharge Plan Departure Patient Disposition: Home Clinical Impression: Abdominal pain Instructions: DI for Abdominal Pain-Adult Activity Restrictions/Additional Instructions: *You have been diagnosed with [left lower quadrant pain. Your history and physical exam are very reassuring as are your labs and CT scan. There may be a small hematoma but nothing significant that would require specific or immediate intervention *What to do: *Please continue to take your regular medications as directed. [ ] New medication prescriptions sent to your pharmacy: [ ] [ ] New medication written as a paper prescription [ x] No new medications given *Please follow up with your primary care provider in 2-3 days, call for an appointment. Let them know you were seen in the Emergency Department and that we ask that you be seen in follow up. We will electronically transmit a record of today's note if your PCP is in our system * be sure to follow the discharge instructions your given when he left the hospital. Please keep in mind that if you lift heavy objects, including or taut other you could cost tearing of your abdominal wall and incision site which could lead to hernias and other complications. *If you do not have a primary care provider please contact the [facility] Sophia davis line at [phone]. They will ask some questions about your medical history and help get you set up with a doctor in the community. *Return to Emergency Department if you should have any new, worsening or concerning symptoms, such as [fever greater than 101 F, shaking chills, worsening pain, persistent vomiting or other bothersome symptoms] Prescriptions: No Action nitrofurantoin macrocrystal [Macrodantin] 100 mg capsule 100 mg PO BID Qty: 14 0RF Rx Instructions: must administer with a meal/food Probiotic 1 cap PO DAILY 0RF ondansetron 4 mg tablet,disintegrating 4 mg PO TID PRN (Reason: nausea and vomiting) Qty: 9 0RF oxycodone-acetaminophen 5-325 mg tablet 1 tab PO Q6H PRN (Reason: pain) Qty: 8 0RF Referrals: Roel Boykin MD [Primary Care Provider] -
--- NOTE | 2021-08-21 18:06 | DI.CT.S_ITS ---
PROCEDURE: CT ABDOMEN PELVIS W CON INDICATIONS: post operative pain, RLQ, recent C section TECHNIQUE: After the administration of oral and IV contrast, axial sections were acquired from the lung bases to the pubic symphysis. Coronal and sagittal reformats were performed. For radiation dose reduction, the following was used: automated exposure control, adjustment of mA and/or kV according to patient size. COMPARISON: [facility], CT, CT ABDOMEN PELVIS W CON, 11/26/2020, 20:50. FINDINGS: Image quality: Excellent. Lung bases: Multiple small foci of ground-glass opacity at the lung bases. No pleural effusion. Heart: No significant findings. ABDOMEN: Liver: Prominent. Gallbladder: Unremarkable. Biliary ducts: Unremarkable. Pancreas: Unremarkable. Spleen: Unremarkable. Adrenal Glands: Unremarkable. Kidneys and Ureters: No hydronephrosis. Small cyst at the superior pole the right kidney. Stomach and Bowel: Stomach, small bowel loops, and colon are unremarkable. Normal appendix. Peritoneum: No abnormal intraperitoneal fluid. No free air. Ventral Wall: scar. Mild stranding. Near the expected incision site. There is mild thickening of the rectus musculature. No unexpected fluid collection. Tiny umbilical hernia. Abdominal Nodes: No retroperitoneal or mesenteric adenopathy by size criteria. Vessels: Aorta and inferior vena cava are normal in size. PELVIS: Pelvic Organs: Post gravid uterus. Small nodular density anterior to the lower uterine segment with mass effect on the urinary bladder measuring 1.4 cm, (). This is new compared to CT 11/26/2020. This measures approximately 40 Hounsfield units. This could represent a small hematoma at the surgical site. Bladder: Under stone. Small phlebolith in the pelvis. Pelvic Nodes: No enlarged lymph nodes. Miscellaneous: No inguinal hernias are seen. Bones: No suspicious lesion. Iliacus condensans. IMPRESSION: 1. Post gravid uterus. Small nodular density anterior to the lower uterine segment with mass effect on the urinary bladder measuring 1.4 cm. This could represent a small hematoma. Follow-up pelvic ultrasound could be performed to demonstrate resolution. 2. Mild thickening and stranding at the lower abdominal wall site. No unexpected fluid collection. 3. No hydronephrosis. No small bowel obstruction. Normal appendix. Dictated by: Leopoldo Edge M.D. on 08/21/2021 at 19:25 Approved by: Leopoldo Edge M.D. on 08/21/2021 at 19:34
== END 2021-08-21 20:07 | disposition home or self-care (01) ==
PROVIDERS: Emergency Medicine; Emergency Provider Emergency Medicine; PCP Obstetrics & Gynecology
DX: O90.89 Other complications of the puerperium, not elsewhere classified (principal); R10.32 Left lower quadrant pain; Z87.891 Personal history of nicotine dependence
CPT/HCPCS: 36415; 74177; 80053; 81001; 81003; 83690; 85025; 99283; 99284; Q9967

== ENCOUNTER 2022-03-07 16:37 | Emergency (ER) | payer OTHER, MEDICAID, SELFPAY ==
[2022-03-07 17:52] VITALS: BP 133/75; PULSE 89; RESP 18; TEMP 36.2; O2SAT 98; BMI 53.0
[2022-03-07 18:12] LABS: Add Manual Diff / Slide Review NO; Basophils Absolute Auto 100 /uL (0-100); Basophils Percent Auto 0.8 % (0-2); Eosinophils Absolute Auto 100 /uL (0-450); Eosinophils Percent Auto 1.2 % (2-4); Hematocrit 36.9 % (36-46); Hemoglobin 12.8 g/dL (12.0-16.0); Lymphocytes Absolute Auto 3400 /uL (1100-4500); Lymphocytes Percent Auto 36.2 % (25-40); Mean Corpuscular HGB Conc 34.8 % (30-36); Mean Corpuscular Hemoglobin 27.9 PG (26-34); Mean Corpuscular Volume 80.4 fL (80-100); Monocytes Absolute Auto 700 /uL (0-900); Monocytes Percent Auto 7.3 % (3-14); Neutrophils Absolute Auto 5200 /uL (1500-7000); Neutrophils Percent Auto 54.5 % (50-75); Platelet Count 253 X10^3/uL (150-400); Red Blood Cell Count 4.59 X10^6/uL (4.0-5.2); Red Cell Distribution Width 14.4 % (11.6-14.8); White Blood Cell Count 9.5 X10^3/uL (4.5-11.0)
[2022-03-07 18:21] LABS: Alanine Aminotransferase 34 IU/L (<35); Albumin 4.3 g/dL (3.5-5.0); Albumin Globulin Ratio 1.3 (1.0-2.8); Alkaline Phosphatase 103 U/L (38-126); Aspartate Aminotransferase 27 IU/L (14-36); BUN Creatinine Ratio 19.2 (6-22); Bilirubin Total 0.4 mg/dL (0.2-1.3); Blood Urea Nitrogen 10 mg/dL (7-17); Calcium 8.8 mg/dL (8.4-10.2); Carbon Dioxide 24 mmol/L (22-32); Chloride 105 mmol/L (98-107); Estimated Glomerular Filt Rate > 60 mL/min (>60); Globulin 3.4 g/dL (1.7-4.1); Glucose 104 mg/dL (70-100); HEMOLYSIS 23 (0-50); Lipase 60 U/L (23-300); Potassium 3.9 mmol/L (3.4-5.1); Sodium 139 mmol/L (137-145); Total Protein 7.7 g/dL (6.3-8.2)
--- NOTE | 2022-03-07 23:16 | ED_ITS ---
HPI - Abdominal Pain General Chief Complaint: Abdominal Pain Stated Complaint: bad pain in waist and shoulder Time Seen by Provider: 03/07/22 23:13 Source: patient Mode of arrival: Ambulatory Limitations: no limitations History of Present Illness HPI narrative: This is a 32-year-old female history of depression on a antidepressant and vitamin with complaint of right flank that radiated to the front end e padilla up to her shoulder patient states started yesterday it has been worsening which was worse with movement. Particularly walking and driving in the car. Patient states his gotten increasingly intense. We will sometimes improved somewhat but not completely. Denies fevers or chills. No nausea or vomiting. No diarrhea, no constipation, no dysuria, urgency frequency or hematuria no new vaginal bleeding or discharge. Patient has had x2 in the past but states that she has all her other organs. She has an allergy to metoclopramide. No tobacco, alcohol or illicit. She is currently and is 7 months Related Data Home Medications Medication Instructions Recorded Confirmed Probiotic 1 cap PO DAILY 01/05/18 11/07/21 bupropion HCl 300 mg 24 hr tablet, 300 mg PO 11/07/21 11/07/21 extended release folic acid 1 mg tablet 1 mg PO 11/07/21 11/07/21 Previous Rx's Medication Instructions Recorded fluoxetine 20 mg capsule 20 mg PO DAILY #90 caps 01/22/22 vit no.95-ferrous 1 tab PO DAILY #90 tabs 02/24/22 fumarate 28 mg-folic acid 800 mcg tablet () Allergies Allergy/AdvReac Type Severity Reaction Status Date / Time metoclopramide AdvReac Drowsy Verified 11/07/21 16:42 Review of Systems Review of Systems ROS Unobtainable: All systems reviewed & are unremarkable except as noted in HPI and below Patient History Medical History Irregular menses Mixed anxiety depressive disorder (02/19/16) Surgical History History of No significant past surgical history Social History Smoking Status: Former smoker Tobacco: How many years used: 6 quit status: has quit before second hand exposure: No alcohol intake: former (quit 2019) substance use type: does not use Smoking Status: Former smoker alcohol intake frequency: 0-2 drinks per day Substance Use Type: does not use Exam Narrative Exam Narrative: GENERAL: Alert and oriented x three, [id number] distress HEENT: Head normocephalic, atraumatic, EOMI, pupils reactive, face symmetric, moist mucous membranes NECK: Supple, full range of motion CARDIOVASCULAR: Regular rate and rhythm without murmurs, rubs or gallops. RESPIRATORY: Breath sounds equal bilaterally, no wheezes rales or rhonchi. ABDOMEN: Soft, positive for right upper and lower quadrant tenderness Normoactive bowel sounds all 4 quadrants. No guarding or rebound, rigidity, no mass : No CVA tenderness bilaterally EXTREMITIES: Normal range of motion, no clubbing or edema. Neurovascularly intact NEUROLOGICAL: Cranial nerves II through XII grossly intact. Moving all extremities SKIN: Warm, dry, no petechiae, no rashes or lesions. Initial Vital Signs Initial Vital Signs: Vital Signs Temperature 97.1 F L 03/07/22 17:52 Pulse Rate 89 03/07/22 17:52 Respiratory Rate 18 03/07/22 17:52 Blood Pressure 133/75 03/07/22 17:52 Pulse Oximetry 98 03/07/22 17:52 Oxygen Delivery Method 03/07/22 17:52 Course Orders Ordered: ED Orders 03/07/22 23:26 CT abdomen pelvis w con Stat Discontinued Medications Hydrocodone Bitart/Acetaminophen (Hydrocodone/Acet 5/325 Prepack) 1 bottle MISC SEEINSTR ONE Stop: 03/08/22 00:02 Last Admin: 03/08/22 00:09 Dose: 1 bottle Documented By: JESSICA Sodium Chloride (Normal Saline 0.9%) 1,000 mls @ 1,000 mls/hr IV BOLUS ONE Stop: 03/08/22 00:25 Last Infusion: 03/08/22 00:09 Dose: 0 mls/hr Documented By: Admin: 03/07/22 23:42 Dose: 1,000 mls/hr Documented By: SONNY Ketorolac Tromethamine (Ketorolac 30 Mg/Ml Vial) 15 mg IV NOW ONE Stop: 03/07/22 23:27 Last Admin: 03/07/22 23:42 Dose: 15 mg Documented By: SONNY Vital Signs Vital signs: Vital Signs - 8 hr 03/08/22 00:16 03/08/22 00:23 Temperature 96.7 F L Pulse Rate 78 72 Respiratory Rate 18 16 Blood Pressure 115/72 129/74 Pulse Oximetry 98 99 Oxygen Delivery Method Room Air Room Air MDM - Abdominal Pain Lab Data Result diagrams: 03/07/22 18:00 03/07/22 18:00 Labs: Lab Results 03/07/22 03/07/22 Range/Units 18:00 18:00 WBC 9.5 (4.5-11.0) X10^3/uL RBC 4.59 (4.0-5.2) X10^6/uL Hgb 12.8 (12.0-16.0) g/dL Hct 36.9 (36-46) % MCV 80.4 (80-100) fL MCH 27.9 (26-34) PG MCHC 34.8 (30-36) % RDW 14.4 (11.6-14.8) % Plt Count 253 (150-400) X10^3/uL Neut % (Auto) 54.5 (50-75) % Lymph % (Auto) 36.2 (25-40) % [place] % (Auto) 7.3 (3-14) % Eos % (Auto) 1.2 L (2-4) % Baso % (Auto) 0.8 (0-2) % Neut # (Auto) 5200 (5091-7380) /uL Lymph # (Auto) 3400 (8602-1429) /uL [place] # (Auto) 700 (0-900) /uL Eos # (Auto) 100 (0-450) /uL Baso # (Auto) 100 (0-100) /uL Sodium 139 (137-145) mmol/L Potassium 3.9 (3.4-5.1) mmol/L Chloride 105 (98-107) mmol/L Carbon Dioxide 24 (22-32) mmol/L BUN 10 (7-17) mg/dL Creatinine 0.52 (0.52-1.04) mg/dL Estimated GFR > 60 (>60) mL/min BUN/Creatinine Ratio 19.2 (6-22) Glucose 104 H (70-100) mg/dL Calcium 8.8 (8.4-10.2) mg/dL Total Bilirubin 0.4 (0.2-1.3) mg/dL AST 27 (14-36) IU/L ALT 34 (<35) IU/L Alkaline Phosphatase 103 (38-126) U/L Total Protein 7.7 (6.3-8.2) g/dL Albumin 4.3 (3.5-5.0) g/dL Globulin 3.4 (1.7-4.1) g/dL Albumin/Globulin Ratio 1.3 (1.0-2.8) Lipase 60 (23-300) U/L Point of care testing: Point of Care Testing Test Results Negative Urine Dip Bedside Urine Glucose Negative Bedside Urine Bilirubin - Negative Bedside Urine Ketone - Negative Urine Specific [place] 1.02 Bedside Urine Occult Blood - Negative Bedside Urine pH 6.0 Bedside Urine Protein - Negative Bedside Urine Urobilinogen - Negative Bedside Urine Nitrite - Negative Bedside Urine Leukocytes - Negative Esterase ECG Data Attestation: I personally reviewed and interpreted this ECG as follows: Interpretation: Sinus rhythm with sinus arrhythmia rate of 75 [place] 154 QRS 88 QTC of [address] changes. MDM Narrative Medical decision making narrative: 32-year-old female presents with complaint of pain in her right flank wrapping around her front also has some lower abdominal pain on palpation states pain radiates up to her shoulder. Patient has reproducible pain in right upper and lower quadrant on the right side not on the left. CBC, CMP lipase and urine do not show acute cause she is not . She does still have appendix she is had C-sections in the past but no other intra-abdominal surgeries. Patient given Toradol for pain, fluids and CT abdomen pelvis which shows no clear acute change, patient's outer exam does not show any obvious sign of shingles or other change. Patient does have reproducible pain on the right side of her lower abdomen. Plan for watchful waiting return precautions. Discharge Plan Departure Patient Disposition: Home Clinical Impression: Abdominal pain Instructions: DI for Abdominal Pain-Adult Activity Restrictions/Additional Instructions: Your labs and imaging today are reassuring overall. You can take Tylenol up to a 1000 mg every 6 hours as needed for pain and/or ibuprofen up to 800 mg every 8 hours. These are both safe for . You may take [place] 1 tablet every 6 hours as needed for pain. This medication can make you sleepy do not drive, perform hazardous activities or make any major decisions while taking it. This medication will make you constipated please take a stool softener once to twice daily until stools are soft and regular. Make sure you have someone close by if so that they can take baby if you fall asleep while taking narcotic medicine. Please return for worsening symptoms, fevers, new chest pain, shortness of breath, passing out, persistent vomiting or other new or concerning symptoms. Prescriptions: No Action fluoxetine 20 mg capsule 20 mg PO DAILY Qty: 90 3RF PNV cmb#95-ferrous fumarate-FA [] 28 mg iron- 800 mcg tablet 1 tab PO DAILY Qty: 90 1RF bupropion HCl 300 mg tablet extended release 24 hr 300 mg PO Label Comments: TAKE ONE TABLET BY MOUTH ONE TIME DAILY folic acid 1 mg tablet 1 mg PO Label Comments: TAKE ONE TABLET BY MOUTH ONE TIME DAILY Probiotic 1 cap PO DAILY Visit Report Forms: Patient Portal/API
--- NOTE | 2022-03-07 23:26 | DI.CT.S_ITS ---
PROCEDURE: CT ABDOMEN PELVIS W CON INDICATIONS: right sided abd/flank pain upper and lower TECHNIQUE: After the administration of intravenous contrast, axial sections acquired from the lung bases to the pubic symphysis. Coronal and sagittal reformats were performed. For radiation dose reduction, the following was used: automated exposure control, adjustment of mA and/or kV according to patient size. COMPARISON: [facility], CT, CT ABDOMEN PELVIS W CON, 08/21/2021, 18:40. [facility], CT, CT ABDOMEN PELVIS W CON, 11/26/2020, 20:50. FINDINGS: Image quality: Excellent. Lung bases: Unremarkable. Heart: No significant findings. ABDOMEN: Liver: Unremarkable. Gallbladder: Unremarkable. Biliary ducts: Unremarkable. Pancreas: Unremarkable. Spleen: Unremarkable. Adrenal Glands: Unremarkable. Kidneys and Ureters: Unremarkable. Stomach and Bowel: Stomach, small bowel loops, and colon are unremarkable. Peritoneum: No abnormal intraperitoneal fluid. No free air. Ventral Wall: No hernias. Abdominal Nodes: No retroperitoneal or mesenteric adenopathy by size criteria. Vessels: Aorta and inferior vena cava are normal in size. PELVIS: Pelvic Organs: Unremarkable. Bladder: Unremarkable. Pelvic Nodes: No enlarged lymph nodes. Miscellaneous: No hernias are seen. A normal appendix is found at the right lower quadrant. Bones: Unremarkable. IMPRESSION: Normal appendix found right lower quadrant. No sign of urinary tract stone or obstruction. No inflammatory process within the abdomen or pelvis is seen. Dictated by: Brian Griffin M.D. on 03/07/2022 at 23:39 Approved by: Brian Griffin M.D. on 03/07/2022 at 23:41
[2022-03-07] MEDS: KETOROLAC 30 MG/ML VIAL 15 MG IV (23:42)
[2022-03-07] MEDS: SODIUM CHLORIDE 0.9% 1,000 ML 1000 ML IV (23:42)
[2022-03-08] MEDS: HYDROCODONE/ACET 5/325 PREPACK 1 BOTTLE MISC (00:09)
[2022-03-08 00:16] VITALS: BP 115/72; PULSE 78; RESP 18; O2SAT 98
[2022-03-08 00:23] VITALS: BP 129/74; PULSE 72; RESP 16; TEMP 35.9; O2SAT 99
== END 2022-03-08 00:24 | disposition home or self-care (01) ==
PROVIDERS: Emergency Medicine; Emergency Provider Emergency Medicine
DX: R10.30 Lower abdominal pain, unspecified (principal)
CPT/HCPCS: 36415; 74177; 80053; 81003; 81025; 83690; 85025; 93005; 96374; 99284; J1885; Q9967

== ENCOUNTER → 2022-08-22 09:19 | Outpatient (CLI) | payer OTHER, MEDICAID, SELFPAY ==
[2022-08-22 10:54] LABS: Hematocrit 40.1 % (36-46); Hemoglobin 13.1 g/dL (12.0-16.0); Mean Corpuscular HGB Conc 32.6 % (30-36); Mean Corpuscular Hemoglobin 25.9 PG (26-34); Mean Corpuscular Volume 79.6 fL (80-100); Platelet Count 272 X10^3/uL (150-400); Red Blood Cell Count 5.04 X10^6/uL (4.0-5.2); Red Cell Distribution Width 15.4 % (11.6-14.8); White Blood Cell Count 8.5 X10^3/uL (4.5-11.0)
[2022-08-22 12:17] LABS: Alanine Aminotransferase 31 IU/L (<35); Albumin 4.2 g/dL (3.5-5.0); Albumin Globulin Ratio 1.3 (1.0-2.8); Alkaline Phosphatase 87 U/L (38-126); Aspartate Aminotransferase 25 IU/L (14-36); BUN Creatinine Ratio 23.2 (6-22); Bilirubin Total 0.9 mg/dL (0.2-1.3); Blood Urea Nitrogen 13 mg/dL (7-17); Calcium 9.2 mg/dL (8.4-10.2); Carbon Dioxide 23 mmol/L (22-32); Chloride 102 mmol/L (98-107); Cholesterol 194 mg/dL (140-199); Estimated Glomerular Filt Rate > 60 mL/min (>60); Globulin 3.2 g/dL (1.7-4.1); Glucose 113 mg/dL (70-100); HDL Cholesterol 38 mg/dL (40-60); HEMOLYSIS < 15 (0-50); LDL Cholesterol Calculated 118 mg/dL (<100); Potassium 4.4 mmol/L (3.4-5.1); Sodium 138 mmol/L (137-145); Total Protein 7.4 g/dL (6.3-8.2); Triglycerides 188 mg/dL (35-150)
[2022-08-22 12:20] LABS: TSH w/ Reflex to FT4 3.82 uIU/mL (0.47-4.68)
[2022-08-22 13:03] LABS: Hemoglobin A1C% w Est Avg Glu 5.6 % (4.0-6.0)
== END ==
PROVIDERS: PCP Registered Nurse Diabetes Educator; Referring Provider Registered Nurse Diabetes Educator; Visit Provider Registered Nurse Diabetes Educator
DX: Z00.00 Encounter for general adult medical examination without abnormal findings (principal); Z86.32 Personal history of gestational diabetes
CPT/HCPCS: 36415; 80053; 80061; 83036; 84443; 85027

== ENCOUNTER → 2023-08-16 06:52 | Outpatient (CLI) | payer OTHER, MEDICAID, SELFPAY ==
--- NOTE | 2023-08-16 06:54 | DI.US.S_ITS ---
PROCEDURE: US ABDOMEN LIMITED INDICATIONS: RUQ PAIN TECHNIQUE: Real-time scanning was performed of the abdominal and retroperitoneal organs, with image documentation. COMPARISON: None. FINDINGS: Liver: Liver is mildly enlarged measuring up to 19.5 centimeter and homogeneous in echotexture. There is increased hepatic echogenicity. Gallbladder: No gallstones. No wall thickening. No pericholecystic edema. Negative sonographic Castillo's sign. Biliary ducts: Intrahepatic bile ducts are non-dilated. Extrahepatic bile duct caliber measures 4.5 mm. Normal is 6-7 mm or less in diameter, or 10 mm or less post-cholecystectomy. Pancreas: Visualized portions of the pancreas are sonographically normal. Miscellaneous: No free abdominal fluid. IMPRESSION: Mildly enlarged liver. Increased hepatic echogenicity which may reflect hepatic steatosis. Approved by: Rita Lovett M.D. on 08/16/2023 at 10:17 No cholelithiasis.
== END ==
PROVIDERS: PCP Registered Nurse Diabetes Educator; Referring Provider Registered Nurse Diabetes Educator; Visit Provider Registered Nurse Diabetes Educator
DX: R10.11 Right upper quadrant pain (principal); R16.0 Hepatomegaly, not elsewhere classified
CPT/HCPCS: 76705

== ENCOUNTER → 2023-08-17 10:15 | Outpatient (CLI) | payer OTHER, MEDICAID, SELFPAY ==
[2023-08-17 10:55] LABS: Hematocrit 35.7 % (36-46); Mean Corpuscular HGB Conc 33.6 % (30-36); Mean Corpuscular Hemoglobin 26.7 PG (26-34); Mean Corpuscular Volume 79.5 fL (80-100); Platelet Count 220 X10^3/uL (150-400); Red Blood Cell Count 4.49 X10^6/uL (4.0-5.2); Red Cell Distribution Width 14.9 % (11.6-14.8); White Blood Cell Count 6.9 X10^3/uL (4.5-11.0)
[2023-08-17 11:15] LABS: Alanine Aminotransferase 16 IU/L (<35); Albumin 3.8 g/dL (3.5-5.0); Albumin Globulin Ratio 1.2 (1.0-2.8); Alkaline Phosphatase 62 U/L (38-126); Aspartate Aminotransferase 24 IU/L (14-36); BUN Creatinine Ratio 19.2 (6-22); Bilirubin Total 0.6 mg/dL (0.2-1.3); Blood Urea Nitrogen 10 mg/dL (7-17); Calcium 8.8 mg/dL (8.4-10.2); Carbon Dioxide 27 mmol/L (22-32); Chloride 108 mmol/L (98-107); Cholesterol 164 mg/dL (140-199); Estimated Glomerular Filt Rate > 60 mL/min (>60); Globulin 3.3 g/dL (1.7-4.1); Glucose 101 mg/dL (70-100); HDL Cholesterol 44 mg/dL (40-60); HEMOLYSIS < 15 (0-50); LDL Cholesterol Calculated 55 mg/dL (<100); Potassium 4.4 mmol/L (3.4-5.1); Sodium 137 mmol/L (137-145); Total Protein 7.1 g/dL (6.3-8.2); Triglycerides 325 mg/dL (35-150)
[2023-08-17 11:48] LABS: Hemoglobin A1C% w Est Avg Glu 5.2 % (4.0-6.0)
[2023-08-17 11:59] LABS: TSH w/ Reflex to FT4 4.43 uIU/mL (0.47-4.68)
== END ==
PROVIDERS: PCP Registered Nurse Diabetes Educator; Referring Provider Registered Nurse Diabetes Educator; Visit Provider Registered Nurse Diabetes Educator
DX: F50.81 Binge eating disorder (principal); F41.9 Anxiety disorder, unspecified; F32.9 Major depressive disorder, single episode, unspecified; Z68.43 Body mass index [BMI] 50.0-59.9, adult; E78.5 Hyperlipidemia, unspecified
CPT/HCPCS: 36415; 80053; 80061; 83036; 84443; 85027

== ENCOUNTER 2023-08-23 12:12 | Emergency (ER) | payer OTHER, MEDICAID, SELFPAY ==
[2023-08-23 12:16] VITALS: BP 125/77; PULSE 78; RESP 18; TEMP 36.4; O2SAT 100; BMI 52.7
--- NOTE | 2023-08-23 12:19 | DI.RAD.S_ITS ---
PROCEDURE: XR ELBOW LT MIN 3V INDICATIONS: fall, pain TECHNIQUE: 4 views of the elbow were acquired. COMPARISON: None. FINDINGS: Bones: The alignment of the radial head appears abnormal. Possible irregularity at the radial neck. No dislocation. No suspicious bony lesions. Soft tissues: No elbow joint effusion. No suspicious soft tissue calcifications. IMPRESSION: Alignment of the radial head appears abnormal. This could be due to positioning or radial neck fracture. Recommend short-term follow-up radiographs. No significant joint effusion. Dictated by: Leopoldo Edge M.D. on 08/23/2023 at 13:21 Approved by: Leopoldo Edge M.D. on 08/23/2023 at 13:24
--- NOTE | 2023-08-23 12:56 | ED.UPPEXIN ---
HPI - Extremity Injury (Upper) <Lenore Callahan PA-C - Last Filed: 08/23/23 14:21> General Chief Complaint: Extremity Injury, Upper Stated Complaint: Fall L elbow pain Time Seen by Provider: 08/23/23 12:50 Source: patient and EMS Mode of arrival: EMS History of Present Illness HPI narrative: 35 yo female brought into ED by EMS for a mechanical fall about 1 hour ago while pushing her double stroller that weighs about 70 lbs with my 2 and 3 year old. She believes the stroller hit an acorn or curb indentation causing her to lose her balance and fall directly onto her left side. She denies any precipitating events, striking her head, N/V or dizziness. Her main complaint is pain to her LEFT elbow and proximal forearm. No treatment tried by patient. EMS applied a cloth sling. No prior injuries. She is right-handed dominant. Denies hearing any popping or cracking sounds, no numbness, tingling or loss of sensation. She is here with her . All other systems are reviewed and are negative. MD complaint: injury to: left, elbow and forearm Onset (ago): hour(s) (1) Other injuries: none Handedness: right Place: outdoors (sidewalk) Severity: moderate Severity scale (1-10): 8 Relieving factors: immobilization (currently with elbow flexed to 90 degrees, position of comfort) and rest Exacerbating factors: movement of extremity (Denies wrist pain or wrist involvement) and other (touching the proximal forearm causes discomfort) Context: fall Associated symptoms: denies other symptoms Treatments prior to arrival: other (cloth sling by EMS) Related Data Home Medications Medication Instructions Recorded Confirmed Probiotic 1 cap PO DAILY 01/05/18 08/11/23 Previous Rx's Medication Instructions Recorded metformin 500 mg tablet 500 mg PO BID #180 tabs 09/21/22 drospirenone 3 mg-ethinyl 1 tab PO DAILY #84 tabs 04/06/23 estradiol 0.02 mg tablet (BRIE (28)) lisdexamfetamine 40 mg capsule 40 mg PO QAM #30 caps 08/12/23 (Vyvanse) lisdexamfetamine 40 mg capsule 40 mg PO QAM #30 caps 08/12/23 (Vyvanse) naltrexone 8 mg-bupropion 90 mg See Rx Instructions .Route 08/12/23 tablet,extended release (Contrave) .COMPLEX #120 tabs hydrocodone 5 mg-acetaminophen 325 1 tab PO Q6H PRN pain #10 tabs 08/23/23 mg tablet ibuprofen 800 mg tablet 800 mg PO Q8H #30 tabs 08/23/23 Allergies Allergy/AdvReac Type Severity Reaction Status Date / Time metoclopramide AdvReac Drowsy Verified 08/11/23 13:39 Review of Systems <Lenore Callahan PA-C - Last Filed: 08/23/23 14:21> Review of Systems Narrative: All other systems reviewed and are negative. ENT Ears, Nose, Mouth, and Throat: Denies neck pain Musculoskeletal Musculoskeletal: Reports system reviewed and no additional complaints, except as documented, Reports as per HPI, Denies deformity, Denies neck pain and Denies numbness Neurologic Neurologic: Denies numbness Comments: Denies trauma, headache, N/V, or dizziness. Patient History <Lenore Callahan PA-C - Last Filed: 08/23/23 14:21> Medical History Dyslipidemia Impaired fasting blood sugar Binge eating disorder Anxiety BMI 50.0-59.9, adult Irregular menses Mixed anxiety depressive disorder (02/19/16) Surgical History History of No significant past surgical history Social History Smoking Status: Former smoker Tobacco: How many years used: 6 quit status: has quit before second hand exposure: No alcohol intake: former (quit 2018) substance use type: does not use Smoking Status: Former smoker alcohol intake frequency: 0-2 drinks per day Substance Use Type: does not use Exam <Lenore Callahan PA-C - Last Filed: 08/23/23 14:21> Initial Vital Signs Initial Vital Signs: Vital Signs Temperature 97.6 F 08/23/23 12:16 Pulse Rate 78 08/23/23 12:16 Respiratory Rate 18 08/23/23 12:16 Blood Pressure 125/77 08/23/23 12:16 Pulse Oximetry 100 08/23/23 12:16 Oxygen Delivery Method Room Air 08/23/23 12:16 Reviewed and are normal. Const General: cooperative, healthy appearing, comfortable and well developed Neck Neck: normal visual inspection, full ROM, trachea midline and supple Chest Chest: normal inspection of the chest and normal palpation of entire chest wall Resp Effort & Inspection: normal respiratory effort and able to speak in complete sentences Auscultation: clear to auscultation bilaterally Cardio Rate: regular rate Rhythm: regular rhythm Heart Sounds: S1 normal and S2 normal Skin General: no rashes or lesions noted Other: No visible soft tissue swelling, discoloration or breaks in the skin left upper extremity, bilateral hands, wrists. Neuro General: patient alert, patient awake, patient oriented x3 and no focal motor deficits Motor: strength 5/5 throughout Sensory Exam: no sensory deficits noted Other: Distal neurovascular grossly intact to left hand/digits. Extrem General: normal to inspection Right upper extremity: normal to inspection, full ROM and normal capillary refill Left upper extremity: normal to inspection, normal capillary refill, no joint enlargement and elbow/forearm (Patient is guarding against full active ROM due to pain.) Details: normal to inspection, tenderness Location: of the lateral epicondyle and of the proximal forearm and distal pulses intact; no swelling, no ecchymosis, no crepitus, no penetrating wound and no deformity; no cyanosis and no edema Other: Re-examined patient following review of radiographs. Limited active ROM. Unable to fully extend without pain. Passive extension causes pain. Attempted supination and pronation which causes pain at the radial head. No Snuff box tenderness, or issues identified with the wrist or hand. No issues identified with the shoulder or upper segment. <Natalie Graff DO - Last Filed: 08/25/23 09:54> Initial Vital Signs Initial Vital Signs: Vital Signs Temperature 97.6 F 08/23/23 12:16 Pulse Rate 78 08/23/23 12:16 Respiratory Rate 18 08/23/23 12:16 Blood Pressure 125/77 08/23/23 12:16 Pulse Oximetry 100 08/23/23 12:16 Oxygen Delivery Method Room Air 08/23/23 12:16 Procedures <Lenore Callahan PA-C - Last Filed: 08/23/23 14:21> Orthopedic Splinting/Casting Injury #1: Time of procedure: 13:55 Side: left Upper Extremity Injury Location: elbow and forearm Upper Extremity Immobilizer: sling/shoulder immobilizer (sling only), sugar tong splint and Yoandy wrap Post splinting neuro exam: intact Post splinting vascular exam: intact Placed by: Nursing Course <Lenore Callahan PA-C - Last Filed: 08/23/23 14:21> Orders Ordered: Discontinued Medications Ibuprofen (Ibuprofen 400 Mg Tablet) 800 mg PO NOW ONE Stop: 08/23/23 13:05 Last Admin: 08/23/23 13:31 Dose: 800 mg Documented By: KF Vital Signs Vital signs: Vital Signs - 8 hr 08/23/23 12:16 08/23/23 14:16 Temperature 97.6 F Pulse Rate 78 61 Respiratory Rate 18 18 Blood Pressure 125/77 120/70 Pulse Oximetry 100 99 Oxygen Delivery Method Room Air Room Air <Natalie Graff DO - Last Filed: 08/25/23 09:54> Orders Ordered: Discontinued Medications Ibuprofen (Ibuprofen 400 Mg Tablet) 800 mg PO NOW ONE Stop: 08/23/23 13:05 Last Admin: 08/23/23 13:31 Dose: 800 mg Documented By: KF Vital Signs Vital signs: Vital Signs - 8 hr 08/23/23 12:16 08/23/23 14:16 Temperature 97.6 F Pulse Rate 78 61 Respiratory Rate 18 18 Blood Pressure 125/77 120/70 Pulse Oximetry 100 99 Oxygen Delivery Method Room Air Room Air MDM - Extremity Injury (Upper) <Lenore Callahan PA-C - Last Filed: 08/23/23 14:21> Imaging Data Extremity x-ray #1: My Impression: Agree with Radiology's interpretation. Physical exam correlates to possible radial head injury due to pain and limited active and passive ROM with supination and pronation. Plan is to splint with orthoglass and sling. Radiologist's Impression: PROCEDURE: XR ELBOW LT MIN 3V INDICATIONS: fall, pain TECHNIQUE: 4 views of the elbow were acquired. COMPARISON: None. FINDINGS: Bones: The alignment of the radial head appears abnormal. Possible irregularity at the radial neck. No dislocation. No suspicious bony lesions. Soft tissues: No elbow joint effusion. No suspicious soft tissue calcifications. IMPRESSION: Alignment of the radial head appears abnormal. This could be due to positioning or radial neck fracture. Recommend short-term follow-up radiographs. No significant joint effusion. Dictated by: Leopoldo Edge M.D. on 08/23/2023 at 13:21 Approved by: Leopoldo Edge M.D. on 08/23/2023 at 13:24 MDM Narrative Medical decision making narrative: Discussed the patient's body habitus and modifying her splint for optimal immobilization and comfort with RN & tech, as well as patient. Her upper extremity segment is rotund, compared to the distal segment. A sugar-tong is applied with padding,YOANDY wraps and sling. Discussed at length with the patient to remain in a 90 degree flexed position, keep splint and sling on at all times. Re-evaluated after application and she feels comfortable. Distal neurovascular remains intact. Discharge Plan Departure Patient Disposition: Home Clinical Impression: Injury of Upper Extremity Qualifiers: Encounter type: initial encounter Laterality: left Qualified Code(s): S49.92XA - Unspecified injury of left shoulder and upper arm, initial encounter Instructions: DI for Fracture Activity Restrictions/Additional Instructions: Wear splint and sling at all times. Seek medical attention immediately if increased pain, coldness of arm/hand, issues with the splint or other concerns. May ice directly over sling for 10-15 minutes. Elevate with pillow as much as possible. Return to Emergency Department if worse or concerns. Please call [facility] for follow-up appointment. Call today. Let them know you were seen in the ED and that you might have a radial head fracture (left arm). Your X-ray was not definitive. Due to your pain, we are treating you for possible fracture (broken bone.) [facility] [phone] Prescriptions: New hydrocodone-acetaminophen 5-325 mg tablet 1 tab PO Q6H PRN (Reason: pain) Qty: 10 0RF ibuprofen 800 mg tablet 800 mg PO Q8H Qty: 30 0RF Rx Instructions: Take with food No Action Contrave 8-90 mg tablet extended release See Rx Instructions .ROUTE .COMPLEX Qty: 120 3RF Rx Instructions: 1 tablet once daily by mouth in the morning for 1 week, then 1 tablet twice daily for 1 week; then 2 tablets in the morning and 1 tablet in the evening for 1 week; and then 2 tablets twice daily metformin 500 mg tablet 500 mg PO BID Qty: 180 3RF Rx Instructions: For first 2 weeks take only 1 tab daily and only increase to twice daily after side effects decrease drospirenone-ethinyl estradiol [BRIE (28)] 3-0.02 mg tablet 1 tab PO DAILY Qty: 84 0RF lisdexamfetamine [Vyvanse] 40 mg capsule 40 mg PO QAM Qty: 30 0RF lisdexamfetamine [Vyvanse] 40 mg capsule 40 mg PO QAM Qty: 30 0RF Probiotic 1 cap PO DAILY Referrals: Fernie Lang ARNP [Primary Care Provider] - Stand Alone Forms: Patient Portal/API, Work Release Note ED Sign-out <Natalie Graff DO - Last Filed: 08/25/23 09:54> Cosign ED Attending Beata Attestation: I was immediately available in the department for consultation.
[2023-08-23] MEDS: IBUPROFEN 400 MG TABLET 800 MG PO (13:31)
[2023-08-23 14:16] VITALS: BP 120/70; PULSE 61; RESP 18; O2SAT 99
== END 2023-08-23 14:22 | disposition home or self-care (01) ==
PROVIDERS: Emergency Provider Physician Assistant Medical; PCP Registered Nurse Diabetes Educator
DX: S49.92XA Unspecified injury of left shoulder and upper arm, initial encounter (principal); W18.30XA Fall on same level, unspecified, initial encounter
CPT/HCPCS: 73080; 99283

== ENCOUNTER → 2023-09-07 14:53 | Outpatient (CLI) | payer OTHER, MEDICAID, SELFPAY ==
--- NOTE | 2023-09-07 14:54 | DI.CT.S_ITS ---
PROCEDURE: CT UE LT WO CON INDICATIONS: Pain in left wrist TECHNIQUE: Noncontrast 1 mm axial sections acquired through the carpal bones, with coronal and sagittal reformats. COMPARISON: [facility] [place], CR, XR WRIST 3+ VIEWS LEFT, 08/25/2023, 17:17. FINDINGS: Image quality: Excellent. 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 No acute wrist fracture or dislocation is seen. No suspicious intraosseous lesion or evidence of avascular necrosis. Soft tissues: There is no abnormal soft tissue calcifications. No significant joint effusion or calcified intra-articular loose bodies. No full-thickness wrist tendon rupture. No soft tissue mass or drainable fluid collection. IMPRESSION: 1. No acute left wrist fracture or dislocation. 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 No evidence of avascular necrosis. 2. No gross left wrist soft tissue abnormalities. Dictated by: Marcelo Curtis M.D. on 09/07/2023 at 16:34 Approved by: Marcelo Curtis M.D. on 09/07/2023 at 16:37
== END ==
LOC: CT 14:53
PROVIDERS: PCP Registered Nurse Diabetes Educator; Referring Provider Physician Assistant; Visit Provider Physician Assistant
DX: M25.532 Pain in left wrist (principal)
CPT/HCPCS: 73200

== ENCOUNTER → 2023-09-13 15:28 | Outpatient (CLI) | payer OTHER, MEDICAID, SELFPAY ==
--- NOTE | 2023-09-13 | DI.CT.S_ITS ---
PROCEDURE: CT UE LT WO CON INDICATIONS: elbow fracture TECHNIQUE: Noncontrast 1-1.5 mm axial sections were acquired through the elbow joint, with coronal and sagittal reformats. COMPARISON: [facility], CR, XR ELBOW LT MIN 3V, 08/23/2023, 12:27. [facility], CT, CT UE LT WO CON, 09/07/2023, 15:10. FINDINGS: Image quality: Excellent. Bones: Acute, impacted, extra-articular fracture of the radial head with angulation. The ulna and humerus are intact with no acute fractures. Soft tissues: Small elbow joint effusion. IMPRESSION: 1. Acute, impacted, extra-articular fracture of the radial head with angulation. 2. Small elbow joint effusion. Dictated by: Jim Ochoa M.D. on 09/14/2023 at 9:15 Approved by: Jim Ochoa M.D. on 09/14/2023 at 9:20
== END ==
PROVIDERS: PCP Registered Nurse Diabetes Educator; Referring Provider Physician Assistant; Visit Provider Physician Assistant
DX: S52.122A Displaced fracture of head of left radius, initial encounter for closed fracture (principal); M25.422 Effusion, left elbow; X58.XXXA Exposure to other specified factors, initial encounter
CPT/HCPCS: 73200

== ENCOUNTER → 2023-09-24 13:11 | Outpatient (CLI) | payer OTHER, MEDICAID, SELFPAY ==
--- NOTE | 2023-09-24 13:13 | DI.NM.S_ITS ---
PROCEDURE: NM HIDA WITH CCK PHARMACEUTICAL: 5.0 mCi Tc-99m mebrofenin IV; 2.6 mcg CCK IV. INDICATIONS: RUQ pain TECHNIQUE: Following intravenous administration of Tc-99m mebrofenin, sequential anterior abdominal images were obtained. To evaluate the contractile response of the gallbladder in response to Cholecystokinin (CCK), sincalide (0.02 ?g/kg) was administered by slow intravenous infusion approximately 60 minutes after the administration of the radiopharmaceutical. Sequential imaging was continued for 30 minutes after the start of CCK infusion. Gallbladder ejection fraction was calculated. COMPARISON: None. FINDINGS: Biliary scan: There is normal tracer uptake and excretion by the liver. There is normal visualization of the intrahepatic ducts, common bile duct, and gallbladder. There is normal tracer transit into the duodenum. CCK stimulation: There is normal contractile response of the gallbladder to CCK infusion. The calculated gallbladder ejection fraction is 91 percent ; normal values are above 35%. It has been shown that any patient abdominal pain after CCK administration is related to the rate of CCK injection, rather than to any underlying gallbladder disease (Clinical Nuclear Medicine 2012; 37: 63-70. Journal of Nuclear Medicine 2014; 55: 1-9). IMPRESSION: 1. Normal tracer uptake by the liver with transit into the bile ducts, gallbladder and duodenum. 2. Normal contractile response of the gallbladder. Dictated by: Pillo Harper M.D. on 09/24/2023 at 15:41 Approved by: Pillo Harper M.D. on 09/24/2023 at 15:42
== END ==
LOC: NUCM 13:11
PROVIDERS: PCP Registered Nurse Diabetes Educator; Referring Provider Registered Nurse Diabetes Educator; Visit Provider Registered Nurse Diabetes Educator
DX: R10.11 Right upper quadrant pain (principal)
CPT/HCPCS: 78227; A9537; J2805

== ENCOUNTER → 2023-12-20 16:12 | Outpatient (CLI) | payer OTHER, SELFPAY ==
[2023-12-20 17:27] LABS: Influenza A - CEPHEID Flu A NEGATIVE (NEGATIVE); Influenza B - CEPHEID Flu B NEGATIVE (NEGATIVE); Respiratory Syncytial Virus Negative (Negative)
[2023-12-20 17:29] LABS: COVID-19 CEPHEID 4-PLEX PCR POSITIVE (Negative)
== END ==
PROVIDERS: PCP Registered Nurse Diabetes Educator; Visit Provider Registered Nurse Diabetes Educator
DX: R05.1 Acute cough (principal)
CPT/HCPCS: 0241U